=== PATIENT | female | born 1965 | race Caucasian/White ===

== ENCOUNTER 2020-06-16 11:42 | Inpatient (IN) | payer BC, MEDICARE ==
[2020-06-16] MEDS ORDERED: HALOPERIDOL LACTATE INJ 5 MG/1 ML VIAL IV ONE (12:44)
[2020-06-16] MEDS ORDERED: VANCOMYCIN HCL INJ 1000 MG VIAL IV ONE (12:57)
[2020-06-16] MEDS ORDERED: ACETAMINOPHEN 325 MG TABLET PO ONE (12:57)
[2020-06-16] MEDS ORDERED: CEFTRIAXONE 1 GM/D5W RTU 1 GM/50 ML RTUPB IV ONE ×2 (12:57→17:00)
[2020-06-16] MEDS ORDERED: NORMAL SALINE 1000 ML 1,000 ML IV ONE ×2 (12:58→17:32)
[2020-06-16] MEDS ORDERED: LORAZEPAM INJ 2 MG/1 ML VIAL IV ONE ×3 (13:13→17:40)
--- NOTE | 2020-06-16 13:23 | ER Document Report ---
ED General <MALCOLM DESHPANDE - Last Filed: 06/16/20 16:11> <KARRI VITAL P - Last Filed: 06/17/20 00:10> - General Chief Complaint: Fever Stated Complaint: FEVER/WEAKNESS Time Seen by Provider: 06/16/20 12:39 - HPI Notes: Chief complaint: Altered mental status and fever History of present illness: 55-year-old female with past history of brain tumor and CVA transported here via EMS for evaluation of altered mental status and fever. Minimal information was provided to us by the transport crew and patient was severely altered and unable to relate her own history upon arrival here. Patient's subsequently came in and has provided extensive additional history. 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 She subsequently had XRT and chemotherapy. The tumor is apparently felt to be currently in a state of remission. Patient was diagnosed with an acute CVA about 8 years ago and went through extensive physical rehabilitation after the fact. She was left with some left- sided weakness and chronic pain after recovery from stroke. She is on a number of chronic medications at home. There have not been any recent changes in her medications. indicates that patient has some baseline impairment of short-term memory and occasionally has a short attention span but other than that has relatively normal mentation. Patient did not feel well on June 14 and slept a lot during the day. At one point she fell asleep on a stool in her kitchen and fell from a stool striking her head. No reported loss of consciousness. Since then she has had a slow deterioration in mentation. Today they noticed that she had a temperature of 103 degrees at home. She seemed much more confused and was getting mildly agitated. They called EMS and had patient transported here. EMS reports Covid screening was done during transport and was negative. says patient has not been coughing, vomiting or complaining of dysuria. No recent known exposure to ill contacts. She is allergic to sulfa drugs. (MALCOLM DESHPANDE) - Related Data Allergies/Adverse Reactions: Sulfa (Sulfonamide Antibiotics) Allergy (Verified 12/23/11 00:46) Past Medical History - General Information source: Relative, Emergency Med Personnel, [facility] Records Cannot obtain history due to: Uncooperative, Altered mental status - Social History Smoking Status: Never Smoker Frequency of alcohol use: None Drug Abuse: None Lives with: Family Family History: Reviewed & Not Pertinent Patient has homicidal ideation: No - Past Medical History Cardiac Medical History: Reports: Hx Hypertension Neurological Medical History: Reports: Hx Cerebrovascular Accident Endocrine Medical History: Denies: Hx Diabetes Mellitus Type 1, Hx Diabetes Mellitus Type 2 Malignancy Medical History: Reports: Hx Brain Cancer GI Medical History: Reports: None Musculoskeletal Medical History: Reports Other - Chronic musculoskeletal pain Traumatic Medical History: Reports: None <MALCOLM DESHPANDE - Last Filed: 06/16/20 16:11> Other: Craniotomy for brain tumor (MALCOLM DESHPANDE) Review of Systems - Review of Systems -: Yes ROS unobtainable due to patient's medical condition <MALCOLM DESHPANDE - Last Filed: 06/16/20 16:11> Physical Exam <MALCOLM DESHPANDE - Last Filed: 06/16/20 16:11> - Vital signs Vitals: Pulse Ox 96 06/16/20 12:46 - Notes Notes: GENERAL: Middle-age female who is moderately agitated stating that she wants to leave here and she did not want to come in the beginning. She knows she is at a hospital and knows her name but otherwise is very disoriented not able to tell me the month or day and not cooperating to provide any medical history. SKIN: Appears flush with chronic rosacea over the facial area good turgor no rashes. HEAD: Normocephalic atraumatic. EYES: PERRLA. EOMI. Conjunctivae and sclerae clear. EARS: CANALS AND TMS CLEAR. NOSE: CLEAR. MOUTH: Moist mucosa. Good dentition. No stridor or edema. No drooling. NECK: Supple. No masses or thyromegaly. No adenopathy. Carotids 2+ without bruits. No JVD. BACK: Symmetrical without tenderness. CHEST: Respirations unlabored. Breath sounds clear and symmetrical. HEART: Tachycardic regular rhythm. No murmur gallop or rub. ABDOMEN: Soft nontender without masses, organomegaly or rebound. Bowel sounds normally active. No bruits. GENITALIA: Deferred. EXTREMITIES: No edema. No calf tenderness. Cap refill less than 1.5 seconds. Dorsalis pedis and posterior tibial pulses 3+ and symmetrical. NEUROLOGICAL: GCS 14. Uncooperative for a detailed neurologic exam. She is moving all 4 extremities symmetrically. PSYCHIATRIC: Confused and uncooperative (MALCOLM DESHPANDE) Course - Laboratory Results Result Diagrams: 06/16/20 13:50 06/16/20 13:50 <MALCOLM DESHPANDE - Last Filed: 06/16/20 16:11> - Laboratory Results Result Diagrams: 06/16/20 13:50 06/16/20 13:50 Critical Laboratory Results Reviewed: No Critical Results - Radiology Results Critical Radiology Results Reviewed: No Critical Results - EKG Interpretation by Me EKG shows normal: Sinus rhythm Rate: Normal Rhythm: NSR - NSR NL [place] [address] elevation or depression my interpretation. <KARRI VITAL - Last Filed: 06/17/20 00:10> - Re-evaluation Re-evalutation: 06/16/20 16:14 I was concerned about sepsis, meningoencephalitis, metabolic encephalopathy, drug intoxication or head trauma. Patient required sedation to accomplish diagnostic procedures and perform an more appropriate examination. We treated her with parenteral Haldol and Ativan. Cath urine has been obtained and remains pending. She is febrile here. Blood cultures have been drawn. Lactate was requested. CBC shows no elevation of WBC. Her chest x-ray shows no infiltrates. Her Covid nasal swab was negative on the weekend per EMS. She is now sedated from medications were given her earlier. Head CT showed extensive encephalomalacia and postsurgical changes with no acute findings per radiolog ist. Patient was empirically given Rocephin and vancomycin IV on arrival here. Urinalysis remains unreported at this time as does urine tox screen. Alcohol is undetectable. Comprehensive metabolic profile is unremarkable. Serum ammonia is normal. Venous blood gas is normal. Lactate is normal. Further care is turned over to Dr. Vital at 1615 hrs. Anticipate patient will require lumbar puncture and admission. (MALCOLM DESHPANDE) 06/16/20 18:[address] Deshpande. Febrile today wiht le redness left > right. Exam and presentation consistent with cellulitis, delerium and fever. Due to altered state lp done with asistance of staff and pt discussed with Dr. Gomez who has graciously agreed to see and evaluate for admission. (KARRI VITAL) - Vital Signs Vital signs: Temp Pulse Resp BP Pulse Ox 101.1 F H 93 18 115/64 99 06/16/20 21:37 06/16/20 21:37 06/16/20 21:37 06/16/20 21:37 06/16/20 21:37 - Laboratory Results Laboratory Results Interpreted: 06/16/20 06/16/20 06/16/20 13:50 13:50 13:50 RBC 3.67 L Hgb 11.6 L Hct 33.6 L Sodium 134.5 L Glucose 123 H Ammonia < 8.7 L Creatine Kinase 250 H Urine Protein Urine Urobilinogen CSF Glucose CSF Total Protein 06/16/20 06/16/20 15:10 18:10 RBC Hgb Hct Sodium Glucose Ammonia Creatine Kinase Urine Protein 30 H Urine Urobilinogen 4.0 H CSF Glucose 113 H CSF Total Protein 99461 H Procedures - Lumbar Puncture Lumbar puncture Time completed: 18:10 Consent obtained: Yes Lumbar puncture pre-procedure: Sterile PPE donned Patient position: Sitting Needle size: 22 Lumbar puncture location: 3-4 Anesthetic type: 1% Lidocaine - 4 ml mL's of anesthetic: 4 Amount/type of drainage: bloody Number of attempts: 4 Complications: No <KARRI VITAL P - Last Filed: 06/17/20 00:10> Critical Care Note - Critical Care Note Total time excluding time spent on procedures (mins): 30 <KARRI VITAL P - Last Filed: 06/17/20 00:10> Discharge <MALCOLM DESHPANDE E - Last Filed: 06/16/20 16:11> - Discharge Admitting Provider: Jason (Hospitalist) Unit Admitted: IMCU <KARRI VITAL P - Last Filed: 06/17/20 00:10> - Discharge Clinical Impression: Altered mental status Fever Qualifiers: Fever type: unspecified Qualified Code(s): R50.9 - Fever, unspecified Cellulitis Qualifiers: Site of cellulitis: extremity Site of cellulitis of extremity: lower extremity Laterality: unspecified laterality Qualified Code(s): L03.119 - Cellulitis of unspecified part of limb Condition: Serious Disposition: ADMITTED OBSERVATION
--- NOTE | 2020-06-16 13:37 | RADIOLOGY REPORT (SQ) ---
EXAM DESCRIPTION: CHEST SINGLE VIEW IMAGES COMPLETED DATE/TIME: 06/16/2020 12:17 pm REASON FOR STUDY: ams COMPARISON: 12/22/2011 EXAM PARAMETERS: NUMBER OF VIEWS: One view. TECHNIQUE: Single frontal radiographic view of the chest acquired. RADIATION DOSE: NA LIMITATIONS: None. FINDINGS: LUNGS AND PLEURA: No opacities, masses or pneumothorax. No pleural effusion. MEDIASTINUM AND HILAR STRUCTURES: No masses. Contour normal. HEART AND VASCULAR STRUCTURES: Heart normal in size. Normal vasculature. BONES: No acute findings. HARDWARE: None in the chest. OTHER: No other significant finding. IMPRESSION: NO ACUTE RADIOGRAPHIC FINDING IN THE CHEST. TECHNICAL DOCUMENTATION: JOB ID: [id number] 2010 [employer]- All Rights Reserved Reading location - IP/workstation name: [email or web address]
--- NOTE | 2020-06-16 14:01 | EKG REPORT ---
SEVERITY:- BORDERLINE ECG - SINUS RHYTHM PROBABLE LEFT ATRIAL ABNORMALITY : Confirmed by: Dwayne Lechuga MD 16-Jun-2020 14:00:48
[2020-06-16 14:29] LABS: ABSOLUTE BASOPHILS # (AUTO) 0.1 10^3/uL (0.0-0.2); ABSOLUTE LYMPHOCYTES (AUTO) 1.4 10^3/uL (0.5-4.7); ABSOLUTE MONOCYTES (AUTO) 0.7 10^3/uL (0.1-1.4); ABSOLUTE NEUT (AUTO) 6.2 10^3/uL (1.7-8.2); BASOPHILS % (AUTO) 0.9 % (0-2); EOSINOPHILS % (AUTO) 0.1 % (0-6); HEMATOCRIT 33.6 % (36.0-47.0); HEMOGLOBIN 11.6 g/dL (12.0-15.5); LYMPHOCYTES % (AUTO) 16.5 % (13-45); MEAN CORPUSCULAR HEMOGLOBIN 31.6 pg (27.0-33.4); MEAN CORPUSCULAR HGB CONC 34.5 g/dL (32.0-36.0); MEAN CORPUSCULAR VOLUME 92 fl (80-97); MONOCYTES % (AUTO) 8.3 % (3-13); PLATELET COUNT 306 10^3/uL (150-450); RED BLOOD COUNT 3.67 10^6/uL (3.72-5.28); RED CELL DISTRIBUTION WIDTH 12.9 % (11.5-14.0); SEGMENTED NEUTROPHILS % (AUTO) 74.2 % (42-78); TOTAL CELLS COUNTED % (AUTO) 100 %; WHITE BLOOD COUNT 8.3 10^3/uL (4.0-10.5)
[2020-06-16 14:30] LABS: INTERNATIONAL RATION (INR) 0.98; PROTHROMBIN TIME 13.2 SEC (11.4-15.4)
[2020-06-16 14:47] LABS: ALKALINE PHOSPHATASE 120 U/L (38-126); ANION GAP 6 (5-19); ASPARTATE AMINO TRANSFERASE 35 U/L (14-36); BILIRUBIN,DIRECT 0.2 mg/dL (0.0-0.4); BILIRUBIN,TOTAL 0.5 mg/dL (0.2-1.3); BLOOD UREA NITROGEN 13 mg/dL (7-20); CALCIUM 8.9 mg/dL (8.4-10.2); CARBON DIOXIDE 28 mmol/L (22-30); CHLORIDE 101 mmol/L (98-107); CREATINE KINASE 250 U/L (30-135); GLUCOSE 123 mg/dL (75-110); POTASSIUM 4.2 mmol/L (3.6-5.0); TOTAL PROTEIN 7.1 g/dL (6.3-8.2)
[2020-06-16 14:49] LABS: ALCOHOL < 10 mg/dL (NONE DETECTED)
[2020-06-16 15:10] LABS: VENOUS BLOOD BASE EXCESS -0.8 mmol/L; VENOUS BLOOD HCO3 23.8 mmol/L (20-32); VENOUS BLOOD PCO2 39.1 mmHg (35-63); VENOUS BLOOD PH 7.4 (7.30-7.42)
--- NOTE | 2020-06-16 15:39 | RADIOLOGY REPORT (SQ) ---
EXAM DESCRIPTION: CT HEAD WITHOUT IMAGES COMPLETED DATE/TIME: 06/16/2020 2:02 pm REASON FOR STUDY: ams. Prior right brain tumor resection. COMPARISON: 12/22/2011. TECHNIQUE: Axial images acquired through the brain without intravenous contrast. Images reviewed wi th bone, brain and subdural windows. Additional sagittal and coronal reconstructions were generated. Images stored on PACS. All CT scanners at this facility use dose modulation, iterative reconstruction, and/or weight based d osing when appropriate to reduce radiation dose to as low as reasonably achievable (ALARA). [facility]: Dose Right [facility]: CareDose [facility]: Dose Right [facility]: Teradose 4D [facility]: [employer] RADIATION DOSE: CT Rad equipment meets quality standard of care and radiation dose reduction techniq ues were employed. CTDIvol: 50.0 mGy. DLP: 981 mGy-cm. mGy. LIMITATIONS: None. FINDINGS: VENTRICLES: Normal size and contour. CEREBRUM: Postoperative changes in the right posterior temporoparietal lobe are stable from prior exa mination. There is no recurrent mass or surrounding vasogenic edema. Prominence of the right latera l ventricle consistent with ex vacuo phenomenon. No evidence of hydrocephalus. No masses. No hemor rhage. No midline shift. No evidence for acute infarction. Normal huggins/white matter differentiation . No areas of low density in the white matter. CEREBELLUM: No masses. No hemorrhage. No alteration of density. No evidence for acute infarction. EXTRAAXIAL SPACES: No fluid collections. No masses. ORBITS AND GLOBE: No intra- or extraconal masses. Normal contour of globe without masses. CALVARIUM: Prior right craniotomy is intact. No underlying fracture, lytic or blastic bone lesion. PARANASAL SINUSES: No fluid or mucosal thickening. SOFT TISSUES: No mass or hematoma. OTHER: No other significant finding. IMPRESSION: No significant interval change. Postsurgical changes in the right cerebrum are stable. No acute intracranial hemorrhage, mass, or evidence of acute territorial infarct. EVIDENCE OF ACUTE STROKE: NO. COMMENT: Quality ID # [id number]: Final reports with documentation of one or more dose reduction techniques (e.g., Automated exposure control, adjustment of the mA and/or kV according to patient size, use of iterative reconstruction technique) TECHNICAL DOCUMENTATION: JOB ID: [id number] [employer]- All Rights Reserved Reading location - IP/workstation name: [email or web address]
[2020-06-16 16:06] LABS: APPEARANCE,URINE CLEAR; BILIRUBIN,URINE NEGATIVE (NEGATIVE); COLOR,URINE YELLOW; GLUCOSE, URINE NEGATIVE (NEGATIVE); KETONES,URINE NEGATIVE (NEGATIVE); PROTEIN,URINE 30 mg/dL (NEGATIVE); URINE SPECIFIC GRAVITY 1.024
--- NOTE | 2020-06-16 16:18 | RADIOLOGY REPORT (SQ) ---
EXAM DESCRIPTION: CT CERVICAL SPINE WITHOUT IMAGES COMPLETED DATE/TIME: 06/16/2020 3:02 pm REASON FOR STUDY: trauma COMPARISON: None. TECHNIQUE: Axial images acquired through the cervical spine without intravenous contrast. Images re viewed with lung, soft tissue and bone windows. Reconstructed coronal and sagittal MPR images review ed. Images stored on PACS. All CT scanners at this facility use dose modulation, iterative reconstruction, and/or weight based d osing when appropriate to reduce radiation dose to as low as reasonably achievable (ALARA). [facility]: Dose Right [facility]: CareDose [facility]: Dose Right [facility]: Teradose 4D [facility]: [email or web address] RADIATION DOSE: CT Rad equipment meets quality standard of care and radiation dose reduction techniq ues were employed. CTDIvol: 26.3 mGy. DLP: 660 mGy-cm. mGy. LIMITATIONS: Motion artifact limits evaluation of the C4/5 level. FINDINGS: ALIGNMENT: Reversal of the normal lordotic curvature may be positional. MINERALIZATION: Normal. VERTEBRAL BODIES: Evaluation of the C4/5 level is somewhat limited by patient motion artifact. The v ertebral bodies appear to be largely intact. DISCS: Minimal disc disease is seen predominantly at the C5/6 and C6/7 levels. FACETS, LATERAL MASSES, POSTERIOR ELEMENTS: No fractures. No dislocation. No acute findings. HARDWARE: None in the spine. VISUALIZED RIBS: No fractures. LUNG APICES AND SOFT TISSUES: No significant or acute findings. OTHER: No other significant finding. IMPRESSION: Patient motion artifact limits evaluation of the C4/[address] evidence of acute osseous injury. If high clinical suspicion for C4/5 injury, recommend repeat evaluation. TECHNICAL DOCUMENTATION: JOB ID: [id number] Quality ID # [id number]: Final reports with documentation of one or more dose reduction techniques (e.g., Au tomated exposure control, adjustment of the mA and/or kV according to patient size, use of iterative reconstruction technique) 2010 [employer]- All Rights Reserved Reading location - IP/workstation name: [email or web address]
[2020-06-16 16:26] LABS: URINE AMPHETAMINES SCREEN NEGATIVE; URINE BARBITURATES SCREEN NEGATIVE; URINE BENZODIAZEPINES SCREEN NEGATIVE; URINE COCAINE SCREEN NEGATIVE; URINE MARIJUANA (THC) SCREEN NEGATIVE; URINE METHADONE SCREEN NEGATIVE; URINE PHENCYCLIDINE SCREEN NEGATIVE
[2020-06-16] MEDS ORDERED: MEROPENEM 1 GM VIAL IV ONE (17:40)
[2020-06-16] MEDS ORDERED: ACETAMINOPHEN 325 MG SUPP.RECT PR ONE (18:16)
[2020-06-16 19:17] LABS: GLUCOSE,CSF 113 mg/dL (40-70)
[2020-06-16] MEDS ORDERED: MEROPENEM 1 GM VIAL IV PRN (19:50)
[2020-06-16] MEDS ORDERED: MEROPENEM 1 GM in NORMAL SALINE 50 ML IV ONE (20:00)
[2020-06-16 20:12] LABS: PROTEIN,CSF 10737 mg/dL (12-60)
[2020-06-16] MEDS ORDERED: VANCOMYCIN HCL 0 MG in DEXTROSE 5%-WATER 250 ML IV NR (20:30)
[2020-06-16] MEDS ORDERED: PROMETHAZINE HCL INJ 25 MG/1 ML VIAL IV PRN (20:46)
[2020-06-16] MEDS ORDERED: ACETAMINOPHEN 650 MG/65 ML IV PRN (20:46)
[2020-06-16] MEDS ORDERED: ACETAMINOPHEN 1,000 MG/100 ML RTUPB IV ONE (21:00)
[2020-06-16] MEDS ORDERED: LEVETIRACETAM 1000 MG/NACL-ISO 1,000 MG/100 ML RTUPB IV SCH (22:00)
[2020-06-16] MEDS ORDERED: MEROPENEM 1 GM VIAL ONE (22:09)
--- NOTE | 2020-06-16 22:10 | PDOC H&P ---
History of Present Illness Admission Date/PCP: 06/16/20 18:44 KIRBY GORE NP Patient complains of: Altered mental status History of Present Illness: DANIEL GAY is a 55 year old female with a complex history. This includes brain tumor resection. She also had a stroke in 2011. She spent 9 days inpatient at [facility] and then 3 weeks had in rehab. Her states that over the last several days she has been having episodes of deep slee p. She would seem to fall asleep immediately. After sleep she would be incoherent. Yesterday she slept for approximately 5 hours on a raised kitchen island stool. Family was concerned and called EMS. When EMS arrived she did wake up. The patient was still somnolent. She did not transport to the hospital. When her walked her to bed it was almost as if she were in a drunken stupor. This morning she was flailing in bed. She was moaning and crying and complained of headache. Her fever has been elevated at 103 degrees. In the emergency department she is writhing in bed. These are nonpurposeful movements. They appear to worsen with any contact with the patient. Urgency room physicians had to administer Haldol and benzodiazepine therapy for sedation. The patient is unable to provide any history. The patient's did provide a list of medications. The most prominent vital signs a temperature of 103 F over the last several hours. 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 Endocrine Medical History: Denies: Diabetes Mellitus Type 1, Diabetes Mellitus Type 2 Malignancy Medical History: Reports: Brain Cancer GI Medical History: Reports: None Musculoskeltal Medical History: Reports: Other - Chronic musculoskeletal pain Traumatic Medical History: Reports: None Past Surgical History Past Surgical History: Reports: Other - Craniotomy Social History Information Source: Relative - Lives with: Spouse/Significant other Smoking Status: Never Smoker Electronic Cigarette use?: No Frequency of Alcohol Use: None Hx Recreational Drug Use: No Hx Prescription Drug Abuse: No - Advance Directive Resuscitation Status: Full Code Surrogate healthcare decision maker:: Discussed with the patient's . He is the decision maker. Family History Family History: Reviewed & Not Pertinent Parental Family History Reviewed: Yes Children Family History Reviewed: Yes Sibling(s) Family History Reviewed.: Yes Medication/Allergy Allergies/Adverse Reactions: Sulfa (Sulfonamide Antibiotics) Allergy (Verified 12/23/11 00:46) Review of Systems ROS unobtainable: Due to mental status Physical Exam Vital Signs: Temp Pulse Resp BP Pulse Ox 103.3 F H 115/73 89 L 06/16/20 19:01 06/16/20 19:01 06/16/20 19:01 Intake & Output 06/15/20 06/16/20 06/17/20 06:59 06:59 06:59 Intake Total 1300 Balance 1300 General appearance: PRESENT: severe distress, well-developed, other - Patient is writhing around in bed. She does not respond to verbal stimuli. She does not open her eyes. She also exhibits deep snoring Head exam: PRESENT: other - Evidence of craniotomy Ear exam: PRESENT: normal external ear exam. ABSENT: bleeding, drainage Mouth exam: PRESENT: other - Unable to assess Neck exam: PRESENT: other - Unable to assess Respiratory exam: PRESENT: clear to auscultation nida, symmetrical, other - Very difficult to assess due to patient constantly writhing in bed. ABSENT: rales, rhonchi, wheezes Cardiovascular exam: PRESENT: RRR, +S1, +S2. ABSENT: bradycardia, diastolic murmur, irregular rhythm, systolic murmur, tachycardia GI/Abdominal exam: PRESENT: diminished bowel sounds, soft. ABSENT: tenderness Rectal exam: PRESENT: deferred Gentrourinary exam: PRESENT: indwelling catheter Neurological exam: PRESENT: altered - Unresponsive to verbal communication., other - Unable to fully assess. Patient nonverbal. Eyes closed. She was writhing around in bed exhibiting chorea-like movements with dystonia. Movements were random and not purposeful. Psychiatric exam: PRESENT: agitated, unusual affect Skin exam: PRESENT: erythema - Both legs. Very warm to the touch., rash - Almost exhibited a lacy mottled appearance that was quite faint., other - Facial flushing Results Laboratory Results: 06/16/20 13:50 06/16/20 13:50 06/16/20 06/16/20 06/16/20 13:50 13:50 13:50 WBC 8.3 RBC 3.67 L Hgb 11.6 L Hct 33.6 L MCV 92 MCH 31.6 MCHC 34.5 RDW 12.9 Plt Count 306 Seg Neutrophils % 74.2 VBG pH VBG pCO2 VBG HCO3 VBG Base Excess Sodium 134.5 L Potassium 4.2 Chloride 101 Carbon Dioxide 28 Anion Gap 6 BUN 13 Creatinine 0.54 Est GFR ( Amer) > 60 Glucose 123 H Lactic Acid Calcium 8.9 Total Bilirubin 0.5 AST 35 Alkaline Phosphatase 120 Ammonia < 8.7 L Total Protein 7.1 Albumin 4.0 Urine Color Urine Appearance Urine pH Ur Specific [place] Urine Protein Urine Glucose (UA) Urine Ketones Urine Blood Urine RBC (Auto) Fluid Tube Number CSF Volume CSF Appearance CSF Color CSF WBC CSF RBC CSF Color (1) CSF Appearance (1) CSF Color (2) CSF Appearance (2) CSF Color (3) CSF Appearance (3) CSF Color (4) CSF Appearance (4) CSF Polymorphonuclear CSF Glucose CSF Total Protein 06/16/20 06/16/20 06/16/20 13:50 14:42 15:10 WBC RBC Hgb Hct MCV MCH MCHC RDW Plt Count Seg Neutrophils % VBG pH 7.40 VBG pCO2 39.1 VBG HCO3 23.8 VBG Base Excess -0.8 Sodium Potassium Chloride Carbon Dioxide Anion Gap BUN Creatinine Est GFR ( Amer) Glucose Lactic Acid 1.4 Calcium Total Bilirubin AST Alkaline Phosphatase Ammonia Total Protein Albumin Urine Color YELLOW Urine Appearance CLEAR Urine pH 7.0 Ur Specific [place] 1.024 Urine Protein 30 H Urine Glucose (UA) NEGATIVE Urine Ketones NEGATIVE Urine Blood NEGATIVE Urine RBC (Auto) 1 Fluid Tube Number CSF Volume CSF Appearance CSF Color CSF WBC CSF RBC CSF Color (1) CSF Appearance (1) CSF Color (2) CSF Appearance (2) CSF Color (3) CSF Appearance (3) CSF Color (4) CSF Appearance (4) CSF Polymorphonuclear CSF Glucose CSF Total Protein 06/16/20 06/16/20 06/16/20 16:20 18:10 18:10 WBC RBC Hgb Hct MCV MCH MCHC RDW Plt Count Seg Neutrophils % VBG pH VBG pCO2 VBG HCO3 VBG Base Excess Sodium Potassium Chloride Carbon Dioxide Anion Gap BUN Creatinine Est GFR ( Amer) Glucose Lactic Acid 2.0 Calcium Total Bilirubin AST Alkaline Phosphatase Ammonia Total Protein Albumin Urine Color Urine Appearance Urine pH Ur Specific [place] Urine Protein Urine Glucose (UA) Urine Ketones Urine Blood Urine RBC (Auto) Fluid Tube Number Cancelled CSF Volume Cancelled CSF Appearance Cancelled CSF Color Cancelled CSF WBC Cancelled CSF RBC Cancelled CSF Color (1) Cancelled CSF Appearance (1) Cancelled CSF Color (2) Cancelled CSF Appearance (2) Cancelled CSF Color (3) Cancelled CSF Appearance (3) Cancelled CSF Color (4) Cancelled CSF Appearance (4) Cancelled CSF Polymorphonuclear Cancelled CSF Glucose 113 H CSF Total Protein 49945 H 06/16/20 20:11 WBC RBC Hgb Hct MCV MCH MCHC RDW Plt Count Seg Neutrophils % VBG pH VBG pCO2 VBG HCO3 VBG Base Excess Sodium Potassium Chloride Carbon Dioxide Anion Gap BUN Creatinine Est GFR ( Amer) Glucose Lactic Acid 0.9 Calcium Total Bilirubin AST Alkaline Phosphatase Ammonia Total Protein Albumin Urine Color Urine Appearance Urine pH Ur Specific [place] Urine Protein Urine Glucose (UA) Urine Ketones Urine Blood Urine RBC (Auto) Fluid Tube Number CSF Volume CSF Appearance CSF Color CSF WBC CSF RBC CSF Color (1) CSF Appearance (1) CSF Color (2) CSF Appearance (2) CSF Color (3) CSF Appearance (3) CSF Color (4) CSF Appearance (4) CSF Polymorphonuclear CSF Glucose CSF Total Protein 06/16/20 13:50 Creatine Kinase 250 H Impressions: Chest X-Ray 06/16/20 12:55 IMPRESSION: NO ACUTE RADIOGRAPHIC FINDING IN THE CHEST. Head CT 06/16/20 12:59 IMPRESSION: No significant interval change. Postsurgical changes in the right cerebrum are stable. No acute intracranial hemorrhage, mass, or evidence of acute territorial infarct. EVIDENCE OF ACUTE STROKE: NO. Cervical Spine CT 06/16/20 13:15 IMPRESSION: Patient motion artifact limits evaluation of the C4/[address] evidence of acute osseous injury. If high clinical suspicion for C4/5 injury, recommend repeat evaluation. Assessment and Plan - Diagnosis (1) Cellulitis Qualifiers: Site of cellulitis: extremity Site of cellulitis of extremity: lower extremity Laterality: unspecified laterality Qualified Code(s): L03.119 - Cellulitis of unspecified part of limb Is this a current diagnosis for this admission?: Yes (2) Fever Qualifiers: Fever type: unspecified Qualified Code(s): R50.9 - Fever, unspecified Is this a current diagnosis for this admission?: Yes (3) Acute metabolic encephalopathy Is this a current diagnosis for this admission?: Yes (4) Chorea Is this a current diagnosis for this admission?: Yes (5) Essential (primary) hypertension Is this a current diagnosis for this admission?: Yes (6) Snoring Is this a current diagnosis for this admission?: Yes - Plan Summary Summary: Cellulitis-the patient's legs are red and warm. There are no ulcerations. She does not have an elevated white blood cell count. I will cover with antibiotics. Acute encephalopathy-infection is a possibility. Cerebrospinal fluid was obt ained however the specimen was bloody. Cell count was aborted. Extremely high protein levels likely due to bloody tap. Specimen was sent for Gram stain and culture. Will cover infectious etiology. She is on meropenem, vancomycin and start acyclovir. Spinal fluid was sent for Gram stain and culture. Unfortunately due to the bloody tap cell count was canceled. Her CSF protein was greater than 10,000 which is an adverse effect of the blood in her spinal fluid and useless for the purpose of diagnoses. She was on carbamazepine and gabapentin. She did have a craniotomy with tumor removal many years ago. I am going to administer Keppra in the event that this is some atypical seizure activity. She also takes pramipexole. The patient's was unsure of the dose. This could be an adverse effect of the medication or some combination of medications. I am actually going to hold the gabapentin, carbamazepine and Mirapex. She will get IV fluids. If it is related to the medications there should be a washout period where she improves. I am going to call her neurologist in the morning to discuss the case. She does have a slightly distended abdomen. She is on 100 mg of spironolactone as well as furosemide. does not report any history of cirrhosis. He does state that her abdomen has slowly been getting larger over the last 8 to 12 months. Laboratory studies are actually unremarkable. I have ordered more studies for the morning. This is a diagnostic challenge. I am hoping that discussion with her neurologist as well as some of the blood work ordered, fluids being administered and benzodiazepines for sedation if needed will result in some improvement tomorrow. - Time Time Spent with patient: 35 or more minutes Medications reviewed and adjusted accordingly: Yes Anticipated Discharge Disposition: Unknown Anticipated Discharge Timeframe: Unknown - Inpatient Certification Based on my medical assessment, after consideration of the patient's comorbidities, presenting symptoms, or acuity I expect that the services needed warrant INPATIENT care.: Yes I certify that my determination is in accordance with my understanding of Medicare's requirements for reasonable and necessary INPATIENT services [42 CFR 412.3e].: Yes Medical Necessity: Significant Comorbidiites Make Outpatient Treatment Too Risky, Need Close Monitoring Due to Risk of Patient Decompensation, Need For IV Fluids, Need for IV Antibiotics Post Hospital Care: D/C or Transfer Summary
[2020-06-16] MEDS: MEROPENEM 1 GM in NORMAL SALINE 50 ML IV SCH (23:43)
[2020-06-16] MEDS: NORMAL SALINE 1000 ML 1,000 ML IV PRN (23:45)
[2020-06-16] MEDS: LORAZEPAM INJ 2 MG/1 ML VIAL IV PRN (23:49)
[2020-06-17] MEDS: LEVETIRACETAM 1000 MG/NACL-ISO 1,000 MG/100 ML RTUPB IV SCH ×3 (00:42→23:07)
[2020-06-17] MEDS ORDERED: ACYCLOVIR SODIUM INJ/PF 500 MG/10 ML SDV IV ONE (01:27)
[2020-06-17] MEDS: ACYCLOVIR SODIUM 700 MG in NORMAL SALINE 100 ML IV SCH (02:31)
[2020-06-17 05:58] LABS: ABSOLUTE EOSINOPHILS # (AUTO) 0.1 10^3/uL (0.0-0.6); ABSOLUTE LYMPHOCYTES (AUTO) 1.5 10^3/uL (0.5-4.7); ABSOLUTE NEUT (AUTO) 4.2 10^3/uL (1.7-8.2); BASOPHILS % (AUTO) 0.5 % (0-2); EOSINOPHILS % (AUTO) 1.1 % (0-6); HEMATOCRIT 30.8 % (36.0-47.0); HEMOGLOBIN 10.7 g/dL (12.0-15.5); LYMPHOCYTES % (AUTO) 22.7 % (13-45); MEAN CORPUSCULAR HEMOGLOBIN 32.1 pg (27.0-33.4); MEAN CORPUSCULAR HGB CONC 34.7 g/dL (32.0-36.0); MEAN CORPUSCULAR VOLUME 92 fl (80-97); MONOCYTES % (AUTO) 14.2 % (3-13); PLATELET COUNT 228 10^3/uL (150-450); RED BLOOD COUNT 3.33 10^6/uL (3.72-5.28); RED CELL DISTRIBUTION WIDTH 12.5 % (11.5-14.0); SEGMENTED NEUTROPHILS % (AUTO) 61.5 % (42-78); TOTAL CELLS COUNTED % (AUTO) 100 %; WHITE BLOOD COUNT 6.8 10^3/uL (4.0-10.5)
[2020-06-17] MEDS: LORAZEPAM INJ 2 MG/1 ML VIAL IV PRN ×2 (06:15→12:20)
[2020-06-17] MEDS: NORMAL SALINE 1000 ML 1,000 ML IV PRN ×2 (06:24→15:58)
[2020-06-17 06:32] LABS: ALBUMIN 3.5 g/dL (3.5-5.0); ALKALINE PHOSPHATASE 103 U/L (38-126); ANION GAP 6 (5-19); ASPARTATE AMINO TRANSFERASE 28 U/L (14-36); BILIRUBIN,DIRECT 0.2 mg/dL (0.0-0.4); BILIRUBIN,TOTAL 0.6 mg/dL (0.2-1.3); BLOOD UREA NITROGEN 9 mg/dL (7-20); C-REACTIVE PROTEIN 17.8 mg/L (<10.0); CALCIUM 8.5 mg/dL (8.4-10.2); CARBON DIOXIDE 27 mmol/L (22-30); CHLORIDE 105 mmol/L (98-107); CREATINE KINASE 168 U/L (30-135); GLUCOSE 110 mg/dL (75-110); POTASSIUM 3.9 mmol/L (3.6-5.0); TOTAL PROTEIN 6.5 g/dL (6.3-8.2)
[2020-06-17 06:34] LABS: FREE T4 (FREE THYROXINE) 0.71 ng/dL (0.78-2.19)
[2020-06-17] MEDS: MEROPENEM 1 GM in NORMAL SALINE 50 ML IV SCH ×4 (06:38→23:05)
[2020-06-17 06:40] LABS: ERYTHROCYTE SEDIMENTATION RATE 40 mm/hr (0-30)
[2020-06-17 06:47] LABS: THYROID STIMULATING HORMONE 6.17 uIU/mL (0.47-4.68)
[2020-06-17] MEDS ORDERED: PROMETHAZINE HCL INJ 25 MG/1 ML VIAL IV PRN (07:30)
[2020-06-17] MEDS: ENOXAPARIN SODIUM INJ 40 MG/0.4 ML DISP.SYRIN SUBCUT SCH (09:16)
[2020-06-17] MEDS: PANTOPRAZOLE SODIUM 40 MG VIAL IV SCH (09:16)
[2020-06-17] MEDS ORDERED: LISINOPRIL 10 MG TABLET PO SCH (10:00)
[2020-06-17] MEDS ORDERED: ACETAMINOPHEN 650 MG SUPP.RECT PR PRN (13:29)
[2020-06-17] MEDS ORDERED: LORAZEPAM INJ 2 MG/1 ML VIAL ONE ×5 (13:58→20:59)
[2020-06-17] MEDS ORDERED: ACYCLOVIR SODIUM 700 MG in NORMAL SALINE 100 ML IV SCH (14:00)
[2020-06-17] MEDS ORDERED: LORAZEPAM INJ 2 MG/1 ML VIAL IV ONE ×5 (14:00→20:33)
[2020-06-17] MEDS ORDERED: HALOPERIDOL LACTATE INJ 5 MG/1 ML VIAL IV ONE (14:51)
[2020-06-17] MEDS ORDERED: DIPHENHYDRAMINE HCL 50 MG/ML VIAL IV ONE (14:51)
[2020-06-17] MEDS ORDERED: DIPHENHYDRAMINE HCL 50 MG/ML VIAL ONE ×2 (15:01→20:59)
[2020-06-17] MEDS: VANCOMYCIN HCL 1,250 MG in DEXTROSE 5%-WATER 250 ML IV SCH (15:59)
--- NOTE | 2020-06-17 16:07 | RADIOLOGY REPORT (SQ) ---
EXAM DESCRIPTION: PICC INSERTION IMAGES COMPLETED DATE/TIME: 06/17/2020 3:49 pm REASON FOR STUDY: unable to get IV access COMPARISON: None. FLUOROSCOPY TIME: 25 seconds 1 images saved to PACS. TECHNIQUE: Fluoroscopic and ultrasound guided PICC placement. LIMITATIONS: None. PROCEDURE: After written consent and assessment were obtained, the patient was brought into the fluo roscopy room and placed supine on the table. Ultrasound evaluation of potential access sites were per formed. After successfully identifying a patent right upper extremity basilic vein, the right upper a rm was prepped and draped in a sterile fashion along with the ultrasound probe. The entry site was an esthetized with 1% lidocaine. A 21 gauge 7 cm needle was advanced through the skin and into the right basilic vein under live ultrasound guidance. An ultrasound image was saved to PACS confirming acces s site. A .018 guide wire was then inserted through the needle and into the venous system. The needl e was then removed and an 11 blade scalpel was used to make a 1cm skin incision. A 5 fr peel-away sh eath was advanced over the wire and into the venous system. A measurement was then made using the exi sting wire and live fluoroscopic guidance. The wire was then removed and trimmed. The PICC was advanc ed through the peel-away sheath and into the venous system. The peel-away sheath was removed and the catheter was adhered to the patients arm with a stat lock. The catheter was then aspirated and flushe d and a sterile bandage was placed over the access site. A fluoroscopic spot image was saved to PACS confirming the catheter tip within the SVC. IMPRESSION: SUCCESSFUL PLACEMENT OF A 5 FR DUAL LUMEN 36 CM PICC IN THE RIGHT BASILIC VEIN. COMMENT: Patient medication list reviewed: Yes- Quality ID# 130:Eligible professional attests to doc umenting in the medical record they obtained, updated, or reviewed the patient's current medications. . Quality ID 145: Final reports for procedures using fluoroscopy that document radiation exposure chaparro sanya, or exposure time and number of fluorographic images (if radiation exposure indices are not avail able) Quality ID #76: The patient was prepped and draped using maximum sterile barrier technique including cap, mask, sterile gown, sterile gloves, a large sterile sheet, hand hygiene, and 2% Chlorhexidine fo r cutaneous antisepsis. When ultrasound is used, sterile ultrasound techniques are followed requiring sterile gel and sterile probes. TECHNICAL DOCUMENTATION: JOB ID: [id number] 2010 [employer]- All Rights Reserved rev Reading location - IP/workstation name: [id number]
--- NOTE | 2020-06-17 19:56 | PDOC PROGRESS REPORT ---
Subjective Date:: 06/17/20 Subjective:: Remains febrile. Continues to have uncontrollable choreiform movements, no jerking movements whatsoever. Reason For Visit: ALTERED MENTAL STATUS, FEVER, CELLULITIS Physical Exam Vital Signs: Temp Pulse Resp BP Pulse Ox 98.4 F 109 H 24 H 158/71 H 90 L 06/17/20 17:45 06/17/20 16:15 06/17/20 16:15 06/17/20 16:15 06/17/20 16:15 Intake & Output 06/16/20 06/17/20 06/18/20 06:59 06:59 06:59 Intake Total 2300 2550 Output Total 850 1000 Balance 1450 1550 Weight 82.1 kg General appearance: PRESENT: obese, other - continuous choreiform movements Eye exam: PRESENT: PERRLA. ABSENT: scleral icterus Mouth exam: PRESENT: dry mucosa Neck exam: PRESENT: meningismus. ABSENT: JVD, lymphadenopathy Respiratory exam: PRESENT: clear to auscultation nida, symmetrical. ABSENT: crackles, wheezes Cardiovascular exam: PRESENT: RRR GI/Abdominal exam: PRESENT: normal bowel sounds, soft. ABSENT: distended, firm, guarding, rebound, rigid, tenderness Rectal exam: PRESENT: deferred Gentrourinary exam: PRESENT: indwelling catheter Neurological exam: PRESENT: altered, other - continuous choreiform movements in all extremities, awakens to voice but does not follow commands or respond to questions, quickly falls asleep after waking up, snoring throughout my exam Focused psych exam: PRESENT: restlessness Skin exam: ABSENT: jaundice, mottled, petechiae, rash, vesicles Results Laboratory Results: 06/17/20 05:35 06/17/20 05:35 06/16/20 06/16/20 06/17/20 18:10 20:11 05:35 WBC 6.8 RBC 3.33 L Hgb 10.7 L Hct 30.8 L MCV 92 MCH 32.1 MCHC 34.7 RDW 12.5 Plt Count 228 Seg Neutrophils % 61.5 Sodium Potassium Chloride Carbon Dioxide Anion Gap BUN Creatinine Est GFR ( Amer) Glucose Lactic Acid 0.9 Calcium Magnesium Total Bilirubin AST Alkaline Phosphatase C-Reactive Protein Total Protein Albumin TSH Free T4 CSF Glucose 113 H CSF Total Protein 68901 H 06/17/20 06/17/20 05:35 05:35 WBC RBC Hgb Hct MCV MCH MCHC RDW Plt Count Seg Neutrophils % Sodium 137.6 Potassium 3.9 Chloride 105 Carbon Dioxide 27 Anion Gap 6 BUN 9 Creatinine 0.49 L Est GFR ( Amer) > 60 Glucose 110 Lactic Acid Calcium 8.5 Magnesium 2.0 Total Bilirubin 0.6 AST 28 Alkaline Phosphatase 103 C-Reactive Protein 17.8 H Total Protein 6.5 Albumin 3.5 TSH 6.17 H Free T4 0.71 L CSF Glucose CSF Total Protein 06/16/20 06/17/20 13:50 05:35 Creatine Kinase 250 H 168 H Impressions: Chest X-Ray 06/16/20 12:55 IMPRESSION: NO ACUTE RADIOGRAPHIC FINDING IN THE CHEST. Head CT 06/16/20 12:59 IMPRESSION: No significant interval change. Postsurgical changes in the right cerebrum are stable. No acute intracranial hemorrhage, mass, or evidence of a cute territorial infarct. EVIDENCE OF ACUTE STROKE: NO. Cervical Spine CT 06/16/20 13:15 IMPRESSION: Patient motion artifact limits evaluation of the C4/[address] evidence of acute osseous injury. If high clinical suspicion for C4/5 injury, recommend repeat evaluation. PICC Line Insertion 06/17/20 00:00 IMPRESSION: SUCCESSFUL PLACEMENT OF A 5 FR DUAL LUMEN 36 CM PICC IN THE RIGHT BASILIC VEIN. Assessment and Plan - Plan Summary Summary: DANIEL GAY is a 55 year old female with PMH of brain tumor s/p resection and CVA in 2011 who presented on 06/16/2020 due to AMS and abnormal movements of her body. Her states that over the last several days she has been having episodes of deep sleep and hyper-somnolence. Her daughter tells me that patient has been complaining of a severe headache and neck stiffness since 06/13. She had fever to 103 degrees F. In the ED, she was found to be exhibiting choreiform movements continuously. LP was performed, unfortunately due to inability to sedate her, the tap was bloody and no cell count could be performed; cultures are pending. She was started on presumed meningitis treatment with acyclovir, m eropenem and vancomycin. Differential diagnoses include bacterial vs aseptic meningitis vs acute CVA vs medication effect vs less likely seizure activity. Cerebrospinal fluid was obtained however the specimen was bloody. Cell count was aborted. Extremely high protein levels likely due to bloody tap. Specimen was sent for Gram stain and culture. Will cover broadly for infectious etiologies. She is on meropenem, vancomycin and acyclovir. Spinal fluid was sent for culture. She was on carbamazepine and gabapentin prior to this hospitalization, and these are being held. She did have a craniotomy with tumor removal many years ago, although her last screening MRI was just 2 months ago and showed no evidence of recurrence. I am going to administer Keppra in the event that this is some atypical seizure activity (unlikely as it is not responsive to high doses of Ativan). She also takes pramipexole at home which is currently held. This may be an adverse effect of the medication or some combination of medications. I am actually going to hold the gabapentin, carbamazepine and Mirapex. She will get IV fluids. If it is related to the medications there should be a washout period where she i mproves. I called [facility] today, where her neurologist is - unfortunately I was unable to reach her own neurologist, but I did speak to Dr. Galloway (neuro admissions evaluator) who recommended to pursue a MRI brain. We have had to given excessively large doses of Ativan to reduce movements, and it has been difficult to obtain MRI as we can not do sedation protocol MRI here at [facility]. I discussed risks/benefits of high dose BZDs with patient's /daughter today and we have decided to repeat a higher dose of Ativan 8 mg IV x1 and attempt MRI brain again this evening. She will be placed on a non-rebreather due to risk of respiratory depression; again this was discussed at length with her family and nursing staff. - consider repeat LP tomorrow if MRI is not diagnostic and she is not improving - ESR and CRP slightly elevated, will trend - labs are otherwise unremarkable - NPO due to mental status, continue maintenance IVF - Oakes catheter for strict I/O - aspiration precautions - seizure precautions - fall precautions - Time Time Spent with patient: 35 or more minutes Anticipated Discharge Disposition: Home, Self Care Anticipated Discharge Timeframe: within 72 hours
[2020-06-17] MEDS ORDERED: NORMAL SALINE 1000 ML 1,000 ML IV PRN (19:57)
[2020-06-17] MEDS ORDERED: MEROPENEM 1 GM VIAL IV SCH (20:00)
[2020-06-17] MEDS ORDERED: CEFTRIAXONE 2 GM/D5W RTU 2 GM/50 ML RTUPB IV SCH ×2 (20:00)
[2020-06-17] MEDS ORDERED: AMPICILLIN SOD INJ 2 GM VIAL IV SCH (20:00)
[2020-06-17] MEDS: FLUMAZENIL INJ 0.5 MG/5 ML VIAL ONE (21:20)
[2020-06-17] MEDS ORDERED: LIDOCAINE 1% INJ-PF (10 MG/ML) 30 ML SDV ONE (22:00)
[2020-06-17 22:09] LABS: INTERNATIONAL RATION (INR) 1.01; PROTHROMBIN TIME 13.5 SEC (11.4-15.4)
[2020-06-17 22:10] LABS: PARTIAL THROMBOPLASTIN TIME 34.9 SEC (23.5-35.8)
[2020-06-17] MEDS: NORMAL SALINE 10 ML SDV (SCHEDULED) IV SCH (23:13)
[2020-06-17 23:18] LABS: GLUCOSE,CSF 44 mg/dL (40-70); PROTEIN,CSF 142 mg/dL (12-60)
[2020-06-17 23:20] LABS: ARTERIAL BLOOD BASE EXCESS -1.5 mmol/L; ARTERIAL BLOOD H2CO3 1.44 mmol/L (1.05-1.35); ARTERIAL BLOOD HCO3 24.6 mmol/L (20-24); ARTERIAL BLOOD O2 SATURATION 98.6 % (94-98); ARTERIAL BLOOD PH 7.33 (7.35-7.45); ARTERIAL BLOOD PO2 139.1 mmHg (80-100); ARTERIAL BLOOD TOTAL CO2 26.1 mmol/L (21-25)
[2020-06-17 23:21] LABS: CSF TUBE NUMBER 3
[2020-06-17 23:22] LABS: APPEARANCE TUBE 1 SLIGHTLY HAZY; COLOR TUBE 1 PINK; COLOR TUBE 2 COLORLESS; COLOR TUBE 3 COLORLESS; COLOR TUBE 4 COLORLESS
[2020-06-17 23:23] LABS: APPEARANCE TUBE 2 CLEAR; APPEARANCE TUBE 3 CLEAR; APPEARANCE TUBE 4 CLEAR; CSF TOTAL VOLUME 19.5 CC; VOLUME TUBE 1 5.5 CC
[2020-06-17 23:24] LABS: RED BLOOD CELL,CSF 14 /uL (0-10); WHITE BLOOD CELL,CSF 105 /uL (0-5)
[2020-06-17 23:29] LABS: ARTERIAL BLOOD FIO2 100%
[2020-06-17 23:30] LABS: MONONUCLEAR CELLS CSF 98 %; POLYMORPHONUCLEAR CELLS CSF 2 %
[2020-06-17] MEDS: NORMAL SALINE IV SCH (23:40)
[2020-06-17] MEDS: ACYCLOVIR SODIUM IV SCH (23:40)
[2020-06-17] MEDS ORDERED: ZIPRASIDONE MESYLATE INJ/PF 20 MG SDV IM ONE (23:59)
[2020-06-18] MEDS ORDERED: IPRATROPIUM/ALBUTEROL 0.5-2.5 MG/3 ML AMPUL NEB PRN (00:22)
[2020-06-18] MEDS ORDERED: IPRATROPIUM/ALBUTEROL 0.5-2.5 MG/3 ML AMPUL NEB ONE (00:30)
[2020-06-18] MEDS: DEXAMETHASONE SOD PHOS INJ 10 MG/1 ML VIAL IV SCH ×5 (00:33→23:26)
[2020-06-18] MEDS: VANCOMYCIN HCL 1,250 MG in DEXTROSE 5%-WATER 250 ML IV SCH ×4 (00:33→17:49)
[2020-06-18] MEDS: ACYCLOVIR SODIUM 700 MG in NORMAL SALINE 100 ML IV SCH (00:42)
[2020-06-18] MEDS ORDERED: LORAZEPAM INJ 2 MG/1 ML VIAL IV ONE (01:00)
[2020-06-18] MEDS ORDERED: ZIPRASIDONE MESYLATE INJ/PF 20 MG SDV IM ONE (01:00)
[2020-06-18] MEDS ORDERED: FLUMAZENIL INJ 0.5 MG/5 ML VIAL IV ONE (01:00)
[2020-06-18] MEDS ORDERED: DIPHENHYDRAMINE HCL 50 MG/ML VIAL IV ONE (01:00)
[2020-06-18] MEDS: DEXTROSE 5%-1/2 NORMAL SALINE 1,000 ML IV PRN (01:10)
[2020-06-18] MEDS: FLUMAZENIL INJ 0.5 MG/5 ML VIAL ONE (01:22)
[2020-06-18] MEDS: NORMAL SALINE 10 ML SDV (AFTER EACH USE) IV PRN ×3 (02:35→06:44)
[2020-06-18] MEDS: MEROPENEM 1 GM in NORMAL SALINE 50 ML IV SCH (05:48)
[2020-06-18 06:14] LABS: ABSOLUTE MONOCYTES (AUTO) 0.4 10^3/uL (0.1-1.4); ABSOLUTE NEUT (AUTO) 8.1 10^3/uL (1.7-8.2); BASOPHILS % (AUTO) 0.3 % (0-2); EOSINOPHILS % (AUTO) 0.2 % (0-6); HEMATOCRIT 30.9 % (36.0-47.0); HEMOGLOBIN 10.9 g/dL (12.0-15.5); LYMPHOCYTES % (AUTO) 10.2 % (13-45); MEAN CORPUSCULAR HEMOGLOBIN 32.1 pg (27.0-33.4); MEAN CORPUSCULAR HGB CONC 35.3 g/dL (32.0-36.0); MEAN CORPUSCULAR VOLUME 91 fl (80-97); MONOCYTES % (AUTO) 4.1 % (3-13); PLATELET COUNT 244 10^3/uL (150-450); RED CELL DISTRIBUTION WIDTH 12.6 % (11.5-14.0); SEGMENTED NEUTROPHILS % (AUTO) 85.2 % (42-78); TOTAL CELLS COUNTED % (AUTO) 100 %; WHITE BLOOD COUNT 9.5 10^3/uL (4.0-10.5)
[2020-06-18] MEDS: ACYCLOVIR SODIUM IV SCH ×3 (06:30→21:28)
[2020-06-18] MEDS: NORMAL SALINE IV SCH ×3 (06:30→21:28)
[2020-06-18 06:34] LABS: ALBUMIN 3.6 g/dL (3.5-5.0); ALKALINE PHOSPHATASE 98 U/L (38-126); ANION GAP 6 (5-19); ASPARTATE AMINO TRANSFERASE 29 U/L (14-36); BILIRUBIN,DIRECT 0.3 mg/dL (0.0-0.4); BILIRUBIN,TOTAL 0.7 mg/dL (0.2-1.3); BLOOD UREA NITROGEN 5 mg/dL (7-20); C-REACTIVE PROTEIN 70.3 mg/L (<10.0); CALCIUM 8.8 mg/dL (8.4-10.2); CARBON DIOXIDE 28 mmol/L (22-30); CHLORIDE 103 mmol/L (98-107); GLUCOSE 159 mg/dL (75-110); POTASSIUM 4.1 mmol/L (3.6-5.0); TOTAL PROTEIN 6.7 g/dL (6.3-8.2)
[2020-06-18 07:05] LABS: ERYTHROCYTE SEDIMENTATION RATE 56 mm/hr (0-30)
[2020-06-18] MEDS ORDERED: INFLUENZA QUAD (6MOS+) 2020-21 VAC 0.5 ML SYR IM ONE (08:00)
[2020-06-18] MEDS: PANTOPRAZOLE SODIUM 40 MG VIAL IV SCH (09:17)
[2020-06-18] MEDS: ENOXAPARIN SODIUM INJ 40 MG/0.4 ML DISP.SYRIN SUBCUT SCH (09:17)
[2020-06-18] MEDS: LEVETIRACETAM 1000 MG/NACL-ISO 1,000 MG/100 ML RTUPB IV SCH ×2 (09:17→21:16)
[2020-06-18] MEDS: NORMAL SALINE 10 ML SDV (SCHEDULED) IV SCH ×2 (09:18→21:27)
[2020-06-18] MEDS ORDERED: AMPICILLIN SOD INJ 2 GM VIAL IV SCH (10:00)
[2020-06-18] MEDS ORDERED: CEFEPIME HCL 2 GM in DEXTROSE 5%-WATER 50 ML IV SCH (11:00)
[2020-06-18] MEDS: CEFEPIME HCL 2 GM in DEXTROSE 5%-WATER 50 ML IV SCH ×2 (11:24→17:49)
[2020-06-18] MEDS: AMPICILLIN SODIUM 2 GM in NORMAL SALINE 100 ML IV SCH ×4 (12:14→23:26)
[2020-06-18] MEDS ORDERED: CEFEPIME 2 GM/D5W RTU 2 GM/50 ML RTUPB IV SCH (14:00)
--- NOTE | 2020-06-18 16:28 | Progress Note ---
Provider Note Provider Note: [facility] ID Telephone Advice Consultation Chart reviewed, patient not seen. This is a 55-year-old woman with history of brain tumor s/p resection long time ago with surveillance brain MRI every year, most recent 2 months ago without evidence of recurrent disease. She had a stroke in 201 with residual hemiparesis for which she required rehab. On 06/14 per notes she started presenting changes in her mental status. Her noticed that she was falling asleep for hours and then wake up confused. This kept happening and he called EMS, patient was brought to the ED, she was found febrile. LP was hemorrhagic, therefore discarded, a repeat LP showed WBC 105 with 98% Mononuclear, Protein 142, RBC 14, glucose 44. CT scan did not show any vasogenic edema or new findings, only post-surgical changes. She was started on vancomycin, meropenem and acyclovir. Fever curve seems to be improving but patient is presenting chorea in her extremities. Apparently no traveling history, sick contacts or animal exposure. ID consulted for recommendations. Allergies: Sulfa (Sulfonamide Antibiotics) Allergy (Verified 12/23/11 00:46) Medications: Acetaminophen [Tylenol 325 mg Tablet] 650 mg PO DAILY 06/17/20 Aspirin [Aspirin 325 mg Tablet] 325 mg PO NOW 06/17/20 Carbamazepine [Tegretol Xr 200 mg Tab.sr] 400 mg PO BID 06/17/20 Furosemide [Lasix 40 mg Tablet] 40 mg PO QAM 06/17/20 Gabapentin [Neurontin] 1,200 mg PO TID 06/17/20 Lisinopril 20 mg PO DAILY 06/17/20 Montelukast Sodium [Singulair 10 mg Tablet] 10 mg PO DAILY 06/17/20 Pramipexole Di-HCl [Mirapex 0.5 Mg Tablet] 0.5 mg PO QHS 06/17/20 Spironolactone [Aldactone 100 mg Tablet] 1 tab PO DAILY 06/17/20 Vital Signs: Temp Pulse Resp BP Pulse Ox 100.3 F 72 28 H 113/63 99 06/18/20 08:28 06/18/20 14:00 06/18/20 05:45 06/18/20 08:00 06/18/20 05:45 Intake & Output 06/17/20 06/18/20 06/19/20 06:59 06:59 06:59 Intake Total 2305 2727 450 Output Total 902 7694 Balance 1450 1398 450 Weight 82.1 kg 66.5 kg Weight/Height Weight 66.5 kg Height 5 ft 5 in Laboratories: 06/18/20 05:42 06/18/20 05:42 MCV 91 fl (80-97) 06/18/20 05:42 MCH 32.1 pg (27.0-33.4) 06/18/20 05:42 MCHC 35.3 g/dL (32.0-36.0) 06/18/20 05:42 RDW 12.6 % (11.5-14.0) 06/18/20 05:42 Seg Neutrophils % 85.2 % (42-78) H 06/18/20 05:42 Carbonic Acid 1.44 mmol/L (1.05-1.35) H 06/17/20 22:52 HCO3/H2CO3 Ratio 17:1 06/17/20 22:52 ABG pH 7.33 (7.35-7.45) L 06/17/20 22:52 ABG pCO2 48.0 mmHg (35-45) H 06/17/20 22:52 ABG pO2 139.1 mmHg (80-100) H 06/17/20 22:52 ABG HCO3 24.6 mmol/L (20-24) H 06/17/20 22:52 ABG O2 Saturation 98.6 % (94-98) H 06/17/20 22:52 ABG Base Excess -1.5 mmol/L 06/17/20 22:52 VBG pH 7.40 (7.30-7.42) 06/16/20 14:42 VBG pCO2 39.1 mmHg (35-63) 06/16/20 14:42 VBG HCO3 23.8 mmol/L (20-32) 06/16/20 14:42 VBG Base Excess -0.8 mmol/L 06/16/20 14:42 FiO2 100% 06/17/20 22:52 Chloride 103 mmol/L (98-107) 06/18/20 05:42 Carbon Dioxide 28 mmol/L (22-30) 06/18/20 05:42 Anion Gap 6 (5-19) 06/18/20 05:42 Est GFR ( Amer) > 60 (>60) 06/18/20 05:42 Glucose 159 mg/dL (75-110) H 06/18/20 05:42 Lactic Acid 0.9 mmol/L (0.7-2.1) 06/16/20 20:11 Calcium 8.8 mg/dL (8.4-10.2) 06/18/20 05:42 Magnesium 2.1 mg/dL (1.6-2.3) 06/18/20 05:42 Total Bilirubin 0.7 mg/dL (0.2-1.3) 06/18/20 05:42 AST 29 U/L (14-36) 06/18/20 05:42 Alkaline Phosphatase 98 U/L (38-126) 06/18/20 05:42 Ammonia < 8.7 umol/L (9-33) L 06/16/20 13:50 C-Reactive Protein 70.3 mg/L (<10.0) H 06/18/20 05:42 Total Protein 6.7 g/dL (6.3-8.2) 06/18/20 05:42 Albumin 3.6 g/dL (3.5-5.0) 06/18/20 05:42 TSH 6.17 uIU/mL (0.47-4.68) H 06/17/20 05:35 Free T4 0.71 ng/dL (0.78-2.19) L 06/17/20 05:35 Urine Color YELLOW 06/16/20 15:10 Urine Appearance CLEAR 06/16/20 15:10 Urine pH 7.0 (5.0-9.0) 06/16/20 15:10 Ur Specific [place] 1.024 06/16/20 15:10 Urine Protein 30 mg/dL (NEGATIVE) H 06/16/20 15:10 Urine Glucose (UA) NEGATIVE mg/dL (NEGATIVE) 06/16/20 15:10 Urine Ketones NEGATIVE mg/dL (NEGATIVE) 06/16/20 15:10 Urine Blood NEGATIVE (NEGATIVE) 06/16/20 15:10 Urine RBC (Auto) 1 /HPF 06/16/20 15:10 Fluid Tube Number 3 06/17/20 21:15 CSF Volume 19.5 CC 06/17/20 21:15 CSF Appearance Cancelled 06/16/20 18:10 CSF Color Cancelled 06/16/20 18:10 CSF WBC 105 /uL (0-5) H 06/17/20 21:15 CSF RBC 14 /uL (0-10) 06/17/20 21:15 CSF Color (1) PINK 06/17/20 21:15 CSF Appearance (1) SLIGHTLY HAZY 06/17/20 21:15 CSF Color (2) COLORLESS 06/17/20 21:15 CSF Appearance (2) CLEAR 06/17/20 21:15 CSF Color (3) COLORLESS 06/17/20 21:15 CSF Appearance (3) CLEAR 06/17/20 21:15 CSF Color (4) COLORLESS 06/17/20 21:15 CSF Appearance (4) CLEAR 06/17/20 21:15 CSF Polymorphonuclear 2 % 06/17/20 21:15 CSF Glucose 44 mg/dL (40-70) 06/17/20 21:15 CSF Total Protein 142 mg/dL (12-60) H 06/17/20 21:15 06/16/20 06/17/20 06/17/20 13:50 05:35 21:43 Creatine Kinase 250 H 168 H 320 H Microbiology: Blood cultures: 06/16 Staphylococcus spp 1/2 sets 06/17 NGTD CSF culture: 06/16 NGTD 06/17 In process Radiology: Chest X-Ray 06/16/20 12:55 IMPRESSION: NO ACUTE RADIOGRAPHIC FINDING IN THE CHEST. Head CT 06/16/20 12:59 IMPRESSION: No significant interval change. Postsurgical changes in the right cerebrum are stable. No acute intracranial hemorrhage, mass, or evidence of acute territorial infarct. EVIDENCE OF ACUTE STROKE: NO. Cervical Spine CT 06/16/20 13:15 IMPRESSION: Patient motion artifact limits evaluation of the C4/[address] evidence of acute osseous injury. If high clinical suspicion for C4/5 injury, recommend repeat evaluation. PICC Line Insertion 06/17/20 00:00 IMPRESSION: SUCCESSFUL PLACEMENT OF A 5 FR DUAL LUMEN 36 CM PICC IN THE RIGHT BASILIC VEIN. Assessment and Recommendations: Patient evaluated due to probable encephalitis. She started with headache, then altered mental status and now choreiform movements. She is febrile. CSF analysis showing mononuclear predominance and elevated protein. Differential diagnosis in terms of etiology would likely be Listeria monocytogenes which can present with similar symptoms, it is unknown if she had any GI symptoms prior to this presentation but this bacteria can be acquired through contaminated food. Treatment is ampicillin 2g IV every 4 hr, will recommend to restart it. Other possible causes of encephalitis are usually viral, compatible with CSF findings. HSV and VZV are the most common, continue acyclovir 10mg/kg IV every 8 hr, HSV 1 and 2 PCR from CSF, VZV PCR from CSF also IgG from CSF and serum as well. Other viral infections are usually self limited, these include WNV, Enterovirus, EBV. No treatment for these, can order CSF PCR. Cryptococcus neoformans is another possibility although opening pressure was normal. Can order Anna ink or Cryp tococcus antigen from blood and csf. Rickettsial infection would be rare at this time of the year unless there is a dog tick exposure that could've transmitted Ehrlichiosis or any other tickborne illness. If she had exposure, consider to add doxycycline 100 mg iv bid. MRI may be helpful at this point to look for temporal enhancement or vasculitis. Duration of therapy for encephalitis either HSV or Listeria would be a minimum of 3 weeks. If there is clinical deterioration, consider to transfer patient to a tertiary center with inhouse ID and neurology. Theresa Obrien MD [facility] [phone]
[2020-06-18] MEDS ORDERED: DOXYCYCLINE HYCLATE INJ 100 MG VIAL IV SCH (19:15)
--- NOTE | 2020-06-18 19:20 | PDOC PROGRESS REPORT ---
Subjective Date:: 06/18/20 Subjective:: She has been afebrile now for over 24 hours. She is exhibiting less abnormal movements and appears much calmer today. She moans in response to voice, eyes flutter but do not open volitionally and she withdraws limbs from pain. Reason For Visit: ALTERED MENTAL STATUS, FEVER, CELLULITIS Physical Exam Vital Signs: Temp Pulse Resp BP Pulse Ox 97.8 F 88 28 H 130/82 H 99 06/18/20 13:17 06/18/20 16:30 06/18/20 05:45 06/18/20 16:30 06/18/20 05:45 Intake & Output 06/17/20 06/18/20 06/19/20 06:59 06:59 06:59 Intake Total 2300 3773 550 Output Total 850 2375 Balance 1450 1398 550 Weight 82.1 kg 66.5 kg General appearance: PRESENT: no acute distress Mouth exam: PRESENT: moist Throat exam: ABSENT: post pharyngeal erythema Neck exam: ABSENT: JVD Respiratory exam: PRESENT: clear to auscultation nida Cardiovascular exam: PRESENT: RRR GI/Abdominal exam: PRESENT: normal bowel sounds, soft. ABSENT: tenderness Gentrourinary exam: PRESENT: indwelling catheter Extremities exam: PRESENT: pedal edema Neurological exam: PRESENT: altered Skin exam: ABSENT: jaundice, rash Results Laboratory Results: 06/18/20 05:42 06/18/20 05:42 06/17/20 06/17/20 06/17/20 21:15 21:15 22:52 WBC RBC Hgb Hct MCV MCH MCHC RDW Plt Count Seg Neutrophils % Carbonic Acid 1.44 H HCO3/H2CO3 Ratio 17:1 ABG pH 7.33 L ABG pCO2 48.0 H ABG pO2 139.1 H ABG HCO3 24.6 H ABG O2 Saturation 98.6 H ABG Base Excess -1.5 FiO2 100% Sodium Potassium Chloride Carbon Dioxide Anion Gap BUN Creatinine Est GFR ( Amer) Glucose Calcium Magnesium Total Bilirubin AST Alkaline Phosphatase C-Reactive Protein Total Protein Albumin Fluid Tube Number 3 CSF Volume 19.5 CSF WBC 105 H CSF RBC 14 CSF Color (1) PINK CSF Appearance (1) SLIGHTLY HAZY CSF Color (2) COLORLESS CSF Appearance (2) CLEAR CSF Color (3) COLORLESS CSF Appearance (3) CLEAR CSF Color (4) COLORLESS CSF Appearance (4) CLEAR CSF Polymorphonuclear 2 CSF Glucose 44 CSF Total Protein 142 H 06/18/20 06/18/20 05:42 05:42 WBC 9.5 RBC 3.40 L Hgb 10.9 L Hct 30.9 L MCV 91 MCH 32.1 MCHC 35.3 RDW 12.6 Plt Count 244 Seg Neutrophils % 85.2 H Carbonic Acid HCO3/H2CO3 Ratio ABG pH ABG pCO2 ABG pO2 ABG HCO3 ABG O2 Saturation ABG Base Excess FiO2 Sodium 136.6 L Potassium 4.1 Chloride 103 Carbon Dioxide 28 Anion Gap 6 BUN 5 L Creatinine 0.43 L Est GFR ( Amer) > 60 Glucose 159 H Calcium 8.8 Magnesium 2.1 Total Bilirubin 0.7 AST 29 Alkaline Phosphatase 98 C-Reactive Protein 70.3 H Total Protein 6.7 Albumin 3.6 Fluid Tube Number CSF Volume CSF WBC CSF RBC CSF Color (1) CSF Appearance (1) CSF Color (2) CSF Appearance (2) CSF Color (3) CSF Appearance (3) CSF Color (4) CSF Appearance (4) CSF Polymorphonuclear CSF Glucose CSF Total Protein 06/16/20 13:50 Blood Blood Culture (PCR) - Final Staphylococcus Species 06/16/20 06/17/20 06/17/20 13:50 05:35 21:43 Creatine Kinase 250 H 168 H 320 H Impressions: Chest X-Ray 06/16/20 12:55 IMPRESSION: NO ACUTE RADIOGRAPHIC FINDING IN THE CHEST. Head CT 06/16/20 12:59 IMPRESSION: No significant interval change. Postsurgical changes in the right cerebrum are stable. No acute intracranial hemorrhage, mass, or evidence of acute territorial infarct. EVIDENCE OF ACUTE STROKE: NO. Cervical Spine CT 06/16/20 13:15 IMPRESSION: Patient motion artifact limits evaluation of the C4/[address] evidence of acute osseous injury. If high clinical suspicion for C4/5 injury, recommend repeat evaluation. PICC Line Insertion 06/17/20 00:00 IMPRESSION: SUCCESSFUL PLACEMENT OF A 5 FR DUAL LUMEN 36 CM PICC IN THE RIGHT BASILIC VEIN. 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 Her states that over the last several days she has been having episodes of deep sleep and hyper-somnolence. Her daughter tells me that patient has been complaining of a severe headache and neck stiffness since 06/13. She had fever to 103 degrees F at home. Unknown if she had any other symptoms while at home. In the ED, she was found to be exhibiting choreiform movements continuously. LP was performed, unfortunately due to inability to sedate her, the tap was bloody and no cell count could be performed. Extremely high protein levels in this sample were likely due to bloody tap. She was started on presumed meningitis treatment with acyclovir, meropenem and vancomycin. I spoke with [facility] on 06/17, where her neurologist is - unfortunately I was unable to reach her own neurologist, but I did speak to Dr. Galloway (neuro in home sales consultant) who recommended to pursue a MRI brain. We had to given excessively large doses of Ativan to reduce choreiform movements, and it has been difficult to obtain MRI thus far as we can not do sedation protocol MRI here at [facility]. She is much calmer today, so we will attempt MRI brain again. LP was repeated on 06/17 evening. Opening pressure was 20 (normal) and cell count was notable for mononuclear predominance and elevated protein. ID was consulted on 06/18. They felt that differential diagnoses included causes of encephalitis, including: Listeria monocytogenes vs viral (HSV, VZV, WNV, Enterovirus, EBV) vs Rickettsial infection (would be rare at this time of the year but the patient does have several dogs and is at risk for potential dog tick exposure). She has been continued on the following treatment with some improvement noted in her fever curve and mental status over the last 48 hours: - cefepime and vancomycin - ampicillin 2g IV Q4H (D1: 06/18/2020) - acyclovir 10mg/kg IV Q8H (D1: 06/17/2020) - doxycycline 100 mg IV Q12H (D1: 06/18/2020) Other ID recommendations: - MRI may be helpful to look for temporal enhancement or vasculitis. - Duration of therapy for encephalitis (HSV or Listeria) would be a minimum of 3 weeks. - If there is clinical deterioration, transfer patient to a tertiary center with in-house ID and neurology. She had been on carbamazepine and gabapentin for many months prior to this hospitalization, and these are currently held. She did have a craniotomy with tumor removal many years ago, although her last screening MRI was just 2 months ago and showed no evidence of recurrence. I am going to continue Keppra in the event that this is some atypical seizure activity. She also takes pramipexole at home which is also currently held. F/E/N - NPO due to mental status, continue maintenance IVF - will need to consider NGT for tube feeds tomorrow if she is not waking up enough to eat - Oakes catheter for strict I/O - aspiration precautions - seizure precautions - fall precautions DVT ppx: Lovenox - Time Time Spent with patient: 35 or more minutes Anticipated Discharge Disposition: Long-Term Facility Anticipated Discharge Timeframe: within 72 hours
[2020-06-18] MEDS: DOXYCYCLINE HYCLATE 100 MG in DEXTROSE 5%-WATER 250 ML IV SCH (21:31)
[2020-06-19] MEDS: CEFEPIME HCL 2 GM in DEXTROSE 5%-WATER 50 ML IV SCH ×3 (01:46→18:18)
[2020-06-19] MEDS: DEXTROSE 5%-1/2 NORMAL SALINE 1,000 ML IV PRN (01:46)
[2020-06-19] MEDS: VANCOMYCIN HCL 1,250 MG in DEXTROSE 5%-WATER 250 ML IV SCH ×3 (02:00→18:18)
[2020-06-19] MEDS: AMPICILLIN SODIUM 2 GM in NORMAL SALINE 100 ML IV SCH ×5 (04:54→20:33)
[2020-06-19] MEDS: DEXAMETHASONE SOD PHOS INJ 10 MG/1 ML VIAL IV SCH ×3 (05:52→18:21)
[2020-06-19] MEDS: ACYCLOVIR SODIUM IV SCH ×3 (05:53→22:02)
[2020-06-19] MEDS: NORMAL SALINE IV SCH ×3 (05:53→22:02)
[2020-06-19] MEDS ORDERED: DEXTROSE 50%-WATER 25 GM/50 ML DISP.SYRIN IV PRN ×2 (08:35)
[2020-06-19] MEDS ORDERED: DEXTROSE 40% GEL 15 GM TUBE PO PRN ×2 (08:35)
[2020-06-19] MEDS ORDERED: GLUCAGON,HUMAN RECOMB 1 MG INJ IM PRN (08:35)
[2020-06-19 10:23] LABS: ABSOLUTE BASOPHILS # (AUTO) 0.1 10^3/uL (0.0-0.2); ABSOLUTE LYMPHOCYTES (AUTO) 0.7 10^3/uL (0.5-4.7); ABSOLUTE MONOCYTES (AUTO) 0.5 10^3/uL (0.1-1.4); ABSOLUTE NEUT (AUTO) 6.1 10^3/uL (1.7-8.2); BASOPHILS % (AUTO) 0.8 % (0-2); EOSINOPHILS % (AUTO) 0.1 % (0-6); HEMATOCRIT 27.2 % (36.0-47.0); HEMOGLOBIN 9.4 g/dL (12.0-15.5); LYMPHOCYTES % (AUTO) 9.9 % (13-45); MEAN CORPUSCULAR HEMOGLOBIN 31.4 pg (27.0-33.4); MEAN CORPUSCULAR HGB CONC 34.7 g/dL (32.0-36.0); MEAN CORPUSCULAR VOLUME 91 fl (80-97); MONOCYTES % (AUTO) 7.1 % (3-13); PLATELET COUNT 219 10^3/uL (150-450); RED BLOOD COUNT 3.01 10^6/uL (3.72-5.28); RED CELL DISTRIBUTION WIDTH 11.9 % (11.5-14.0); SEGMENTED NEUTROPHILS % (AUTO) 82.1 % (42-78); TOTAL CELLS COUNTED % (AUTO) 100 %; WHITE BLOOD COUNT 7.5 10^3/uL (4.0-10.5)
[2020-06-19 10:39] LABS: INTERNATIONAL RATION (INR) 1.07; PROTHROMBIN TIME 14.1 SEC (11.4-15.4)
[2020-06-19 10:42] LABS: D-DIMER 1.02 ug/mL (0.00-0.50)
[2020-06-19 10:43] LABS: ALBUMIN 2.8 g/dL (3.5-5.0); ALKALINE PHOSPHATASE 87 U/L (38-126); ASPARTATE AMINO TRANSFERASE 28 U/L (14-36); BILIRUBIN,DIRECT 0.3 mg/dL (0.0-0.4); BILIRUBIN,TOTAL 0.5 mg/dL (0.2-1.3); BLOOD UREA NITROGEN 9 mg/dL (7-20); C-REACTIVE PROTEIN 42.7 mg/L (<10.0); GLUCOSE 130 mg/dL (75-110); POTASSIUM 3.7 mmol/L (3.6-5.0); TOTAL PROTEIN 5.5 g/dL (6.3-8.2)
[2020-06-19 10:46] LABS: CARBON DIOXIDE 29 mmol/L (22-30); CHLORIDE 108 mmol/L (98-107)
[2020-06-19 10:47] LABS: VANCOMYCIN,TROUGH 14.8 ug/mL (5.0-20.0)
[2020-06-19 10:50] LABS: ANION GAP 2 (5-19)
[2020-06-19 11:30] LABS: ERYTHROCYTE SEDIMENTATION RATE 48 mm/hr (0-30)
--- NOTE | 2020-06-19 11:30 | RADIOLOGY REPORT (SQ) ---
EXAM DESCRIPTION: CT HEAD COMBO IMAGES COMPLETED DATE/TIME: 06/19/2020 11:09 am REASON FOR STUDY: rule out CVA, increased ICP COMPARISON: 06/16/2020 TECHNIQUE: Axial images acquired through the brain without and with intravenous contrast. Images re viewed with bone, brain and subdural windows. Additional sagittal and coronal reconstructions were g enerated. Images stored on PACS. All CT scanners at this facility use dose modulation, iterative reconstruction, and/or weight based d osing when appropriate to reduce radiation dose to as low as reasonably achievable (ALARA). [facility]: Dose Right [facility]: CareDose [facility]: Dose Right [facility]: Teradose 4D [facility]: [email or web address] CONTRAST TYPE AND DOSE: contrast/concentration: Isovue 350.00 mmol/ml; Total Contrast Delivered: 50. 0 ml; Total Saline Delivered: 55.0 ml RENAL FUNCTION: Not available at time of dictation. RADIATION DOSE: CT Rad equipment meets quality standard of care and radiation dose reduction techniq ues were employed. CTDIvol: 48.8 mGy. DLP: 1719 mGy-cm.. LIMITATIONS: None. FINDINGS: VENTRICLES: Stable in size and configuration. Enlargement of the lateral ventricles most marked on the right. CEREBRUM: Postsurgical changes on the right with large area of encephalomalacia in the temporal lobe extending into the posterior frontal and parietal lobe. Diffuse cerebral atrophy. No intracranial h emorrhage. No abnormal enhancement. CEREBELLUM: No masses. No hemorrhage. No alteration of density. No evidence for acute infarction. No enhancing lesions. EXTRA-AXIAL SPACES: No fluid collections. No enhancing lesions. ORBITS AND GLOBE: No intra- or extraconal masses. Normal contour of globe without masses. CALVARIUM: No fracture. PARANASAL SINUSES: No fluid or mucosal thickening. SOFT TISSUES: No mass or hematoma. OTHER: No other significant finding. IMPRESSION: Postsurgical changes on the right. Generalize atrophy and small-vessel ischemic changes . No acute intracranial event. No abnormal enhancement. EVIDENCE OF ACUTE STROKE: NO. TECHNICAL DOCUMENTATION: JOB ID: [id number] Quality ID # [id number]: Final reports with documentation of one or more dose reduction techniques (e.g., Au tomated exposure control, adjustment of the mA and/or kV according to patient size, use of iterative reconstruction technique) 2010 [employer]- All Rights Reserved Reading location - IP/workstation name: [email or web address]
[2020-06-19] MEDS ORDERED: MORPHINE SULFATE 10 MG/ML INJ IV PRN (11:51)
[2020-06-19] MEDS ORDERED: OXYCODONE-ACETAMINOPHEN 5-325 MG TABLET PO PRN (11:52)
[2020-06-19] MEDS ORDERED: ONDANSETRON HCL INJ/PF 4 MG/2 ML SDV ONE (12:10)
[2020-06-19] MEDS ORDERED: OXYCODONE-ACETAMINOPHEN 5-325 MG TABLET ONE (12:11)
[2020-06-19] MEDS: ONDANSETRON HCL INJ/PF 4 MG/2 ML SDV IV PRN ×2 (12:14→18:25)
[2020-06-19] MEDS: LEVETIRACETAM 1000 MG/NACL-ISO 1,000 MG/100 ML RTUPB IV SCH (12:20)
[2020-06-19] MEDS: PANTOPRAZOLE SODIUM 40 MG VIAL IV SCH (12:23)
[2020-06-19] MEDS: DOXYCYCLINE HYCLATE 100 MG in DEXTROSE 5%-WATER 250 ML IV SCH ×2 (12:34→22:03)
[2020-06-19] MEDS: INSULIN LISPRO 100 UNIT/ML 3 ML VIAL SUBCUT SCH ×2 (13:28→18:17)
[2020-06-19] MEDS: NORMAL SALINE 10 ML SDV (SCHEDULED) IV SCH ×2 (13:28→22:00)
[2020-06-19] MEDS: ENOXAPARIN SODIUM INJ 40 MG/0.4 ML DISP.SYRIN SUBCUT SCH (13:28)
[2020-06-19] MEDS: ACETAMINOPHEN 325 MG TABLET PO SCH ×3 (13:55→18:19)
[2020-06-19] MEDS ORDERED: FENTANYL CITRATE INJ/PF 100 MCG/2 ML AMPUL ONE (14:34)
--- NOTE | 2020-06-19 15:13 | RADIOLOGY REPORT (SQ) ---
EXAM DESCRIPTION: PICC INSERTION IMAGES COMPLETED DATE/TIME: 06/19/2020 3:02 pm REASON FOR STUDY: poor IV access (despite 1 PICC already) COMPARISON: 06/17/2020 FLUOROSCOPY TIME: 46 seconds 2 images saved to PACS. TECHNIQUE: Fluoroscopic and ultrasound guided PICC placement. LIMITATIONS: None. PROCEDURE: After written consent and assessment were obtained, the patient was brought into the fluo roscopy room and placed supine on the table. Ultrasound evaluation of potential access sites were per formed. After successfully identifying a patent left basilic vein, the left arm was prepped and drape d in a sterile fashion along with the ultrasound probe. The entry site was anesthetized with 1% lidoc bee. A 21 gauge 7 cm needle was advanced through the skin and into the basilic vein under live ultra sound guidance. An ultrasound image was saved to PACS confirming access site. A .018 guide wire was then inserted through the needle and into the venous system. The needle was then removed and an 11 b lade scalpel was used to make a 1cm skin incision. A 5 fr peel-away sheath was advanced over the wir e and into the venous system. A measurement was then made using the existing wire and live fluoroscop ic guidance. The wire was then removed and trimmed. The PICC was advanced through the peel-away sheat h and into the venous system. The peel-away sheath was removed and the catheter was adhered to the pa tients arm with a stat lock. The catheter was then aspirated and flushed and a sterile bandage was pl aced over the access site. A fluoroscopic spot image was saved to PACS confirming the catheter tip w ithin the the SVC. IMPRESSION: SUCCESSFUL PLACEMENT OF A 5 FR DUAL LUMEN 41 CM PICC IN THE LEFT BASILIC VEIN. COMMENT: Patient medication list reviewed: Yes- Quality ID# [id number]:Eligible professional attests to doc umenting in the medical record they obtained, updated, or reviewed the patient's current medications. . Quality ID 145: Final reports for procedures using fluoroscopy that document radiation exposure chaparro sanya, or exposure time and number of fluorographic images (if radiation exposure indices are not avail able) Quality ID #76: The patient was prepped and draped using maximum sterile barrier technique including cap, mask, sterile gown, sterile gloves, a large sterile sheet, hand hygiene, and 2% Chlorhexidine fo r cutaneous antisepsis. When ultrasound is used, sterile ultrasound techniques are followed requiring sterile gel and sterile probes. TECHNICAL DOCUMENTATION: JOB ID: [id number] 2010 [employer]- All Rights Reserved rev-11/05 Reading location - IP/workstation name: [email or web address]
--- NOTE | 2020-06-19 19:48 | PDOC PROGRESS REPORT ---
Subjective Date:: 06/19/20 Subjective:: JUDITHO. This morning, she is awake, alert and talking. She is no longer having any writhing movements. She does endorse a headache and requests food/pain medications. Reason For Visit: ALTERED MENTAL STATUS, FEVER, CELLULITIS Physical Exam Vital Signs: Temp Pulse Resp BP Pulse Ox 97.9 F 83 20 126/61 H 90 L 06/19/20 07:40 06/19/20 07:40 06/19/20 07:40 06/19/20 07:40 06/19/20 07:40 Intake & Output 06/18/20 06/19/20 06/20/20 06:59 06:59 06:59 Intake Total 3773 2800 900 Output Total 2375 2275 1120 Balance 1398 525 -220 Weight 66.5 kg 85.7 kg General appearance: PRESENT: no acute distress, obese Eye exam: PRESENT: PERRLA. ABSENT: conjunctival injection, nystagmus, scleral icterus Mouth exam: PRESENT: moist Throat exam: ABSENT: post pharyngeal erythema Neck exam: ABSENT: JVD Respiratory exam: PRESENT: clear to auscultation nida, unlabored Cardiovascular exam: PRESENT: RRR GI/Abdominal exam: PRESENT: normal bowel sounds, soft. ABSENT: tenderness Gentrourinary exam: PRESENT: indwelling catheter Extremities exam: PRESENT: pedal edema Neurological exam: PRESENT: alert, awake, oriented to person, oriented to place, oriented to time, oriented to situation Psychiatric exam: PRESENT: anxious Skin exam: ABSENT: jaundice Results Laboratory Results: 06/19/20 09:53 06/19/20 09:53 06/19/20 06/19/20 06/19/20 09:53 09:53 09:53 WBC 7.5 RBC 3.01 L Hgb 9.4 L Hct 27.2 L MCV 91 MCH 31.4 MCHC 34.7 RDW 11.9 Plt Count 219 Seg Neutrophils % 82.1 H Sodium 139.0 Potassium 3.7 Chloride 108 H Carbon Dioxide 29 Anion Gap 2 L BUN 9 Creatinine 0.33 L 0.35 L Est GFR ( Amer) > 60 > 60 Glucose 130 H Calcium 8.0 L Magnesium 2.3 Ferritin 124.00 Total Bilirubin 0.5 AST 28 Alkaline Phosphatase 87 C-Reactive Protein 42.7 H Total Protein 5.5 L Albumin 2.8 L 06/16/20 13:50 Blood Blood Culture (PCR) - Final Staphylococcus Species 06/16/20 18:10 Cerebral Spinal Fluid - Tube 1 (Csf) Gram Stain - Final 06/16/20 18:10 Cerebral Spinal Fluid - Tube 1 (Csf) CSF Culture - Final NO GROWTH 3 DAYS 06/16/20 06/17/20 06/17/20 13:50 05:35 21:43 Creatine Kinase 250 H 168 H 320 H Impressions: Chest X-Ray 06/16/20 12:55 IMPRESSION: NO ACUTE RADIOGRAPHIC FINDING IN THE CHEST. Cervical Spine CT 06/16/20 13:15 IMPRESSION: Patient motion artifact limits evaluation of the C4/[address] evidence of acute osseous injury. If high clinical suspicion for C4/5 injury, recommend repeat evaluation. Head CT 06/19/20 00:00 IMPRESSION: Postsurgical changes on the right. Generalize atrophy and small- vessel ischemic changes. No acute intracranial event. No abnormal enhancement. EVIDENCE OF ACUTE STROKE: NO. PICC Line Insertion 06/19/20 00:00 IMPRESSION: SUCCESSFUL PLACEMENT OF A 5 FR DUAL LUMEN 41 CM PICC IN THE LEFT BASILIC VEIN. 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 Her states that over the last several days she has been having episodes of deep sleep and hyper-somnolence. Her daughter tells me that patient has been complaining of a severe headache and neck stiffness since 06/13. She had fever to 103 degrees F at home. Unknown if she had any other symptoms while at home. In the ED, she was found to be exhibiting choreiform movements continuously. LP was performed, unfortunately due to inability to sedate her, the tap was bloody and no cell count could be performed. Extremely high protein levels in this sample were likely due to bloody tap. She was started on presumed meningitis treatment with acyclovir, meropenem and vancomycin. I spoke with [facility] on 06/17, where her neurologist is - unfortunately I was unable to reach her own neurologist, but I did speak to Dr. Galloway (neuro direct sales professional) who recommended to pursue a MRI brain. We had to given excessively large doses of Ativan to reduce choreiform movements, and it was unfortunately not possible to obtain MRI as we can not do sedation protocol MRI here at [facility]. LP was repeated on 06/17 evening. Opening pressure was 20 (normal) and cell co unt was notable for mononuclear predominance and elevated protein. ID was consulted on 06/18. They felt that differential diagnoses included causes of encephalitis, including: Listeria monocytogenes vs viral (HSV, VZV, WNV, Enterovirus, EBV) vs Rickettsial infection (would be rare at this time of the year but the patient does have several dogs and is at risk for potential dog tick exposure). She has been continued on the following treatment with improvement noted in her fever curve and mental status over the last 48 hours: - cefepime (D1: 06/16) - vancomycin (D1: 06/16, discontinued 06/19) - ampicillin 2g IV Q4H (D1: 06/18/2020) - acyclovir 10mg/kg IV Q8H (D1: 06/17/2020) - doxycycline 100 mg IV Q12H (D1: 06/18/2020) Other ID recommendations: - MRI may be helpful to look for temporal enhancement or vasculitis. - Duration of therapy for encephalitis (HSV or Listeria) would be a minimum of 3 weeks. - If there is clinical deterioration, transfer patient to a tertiary center with in-house ID and neurology. She had been on carbamazepine and gabapentin for many months prior to this hospitalization, and these are currently held. She did have a craniotomy with tumor removal many years ago, although her last screening MRI was just 2 months ago and showed no evidence of recurrence. She also takes pramipexole at home which is also currently held. Due to multiple IV medications and poor access, she has had 2 PICC lines placed this hospitalization. She began to wake up and become more interactive on 06/19. Her Oakes was removed and she was started on a diet. PT/OT have been consulted. She remains afebrile. CT head was repeated to rule out a possible stroke. EEG was performed (results pending). DVT ppx: Lovenox - Time Time Spent with patient: 35 or more minutes Anticipated Discharge Disposition: Home, Self Care Anticipated Discharge Timeframe: within 72 hours
[2020-06-19] MEDS ORDERED: KETOROLAC TROMETHAMINE INJ/PF 30 MG/1 ML SDV IV PRN (19:49)
--- NOTE | 2020-06-19 20:09 | NEURO WORKBENCH EEG REPORT ---
EEG Report Patient: September Selin ID: [id number] Referring Doctor: Santos Rodriguez DOS: 06/19/2020 Medications: acyclovir, ampicillin, cefipime, decadron, doxycycline, lovenox, porcine, protonix, vancomycin History This is a 55 year old right handed female with a history of stroke, brain tumor resected 4 years ago, hypertension who was admitted with AMS, fever, cellulitis. This EEG was requested for hypersomnolence, questionable epileptiform activity. EEG Interpretation This EEG was recorded without clear state with the patients eyes closed. The EEG is characterized by a disorganized background without a posterior dominant rhythm. There was reactivity to passive eye opening/closing. The remainder of the background was characterized by a combination of primarily delta and theta with some alpha frequencies. There was waxing and waning discharges most consistent with generalized periodic discharges (GPD). Photic stimulation resulted in no significant changes. There were no seizures noted. The EKG showed a regular rhythm. EEG Classification * Generalized periodic discharges * Generalized background slowing * Disorganization EEG Impression This EEG is severely abnormal. It is consistent with severe diffuse cerebral dysfunction. GPDs may be seen with several etiologies, including but not limited to anoxic, toxic/metabolic, infectious, and nonconvulsive status epilepticus. If there is a concern for seizures, treatment with antiepileptic medications should be considered. INTERPRETING NEUROLOGIST: Sari Maldonado MD, FRCPC Board Certified in Neurology, with special qualification in Child Neurology, and in Clinical Neurophysiology [facility]
[2020-06-19] MEDS ORDERED: PRAMIPEXOLE DI-HCL 0.5 MG TABLET PO ONE (22:45)
[2020-06-20] MEDS: DEXAMETHASONE SOD PHOS INJ 10 MG/1 ML VIAL IV SCH ×4 (00:20→17:28)
[2020-06-20] MEDS: INSULIN LISPRO 100 UNIT/ML 3 ML VIAL SUBCUT SCH ×4 (00:22→18:01)
[2020-06-20] MEDS: AMPICILLIN SODIUM 2 GM in NORMAL SALINE 100 ML IV SCH ×6 (00:22→20:45)
[2020-06-20] MEDS: CEFEPIME HCL 2 GM in DEXTROSE 5%-WATER 50 ML IV SCH ×2 (01:50→11:45)
[2020-06-20] MEDS: ONDANSETRON HCL INJ/PF 4 MG/2 ML SDV IV PRN (01:50)
[2020-06-20] MEDS ORDERED: MELATONIN 5 MG TABLET PO PRN (02:21)
[2020-06-20] MEDS ORDERED: CALCIUM CARBONATE 500 MG TAB.CHEW PO PRN (02:59)
[2020-06-20] MEDS: NORMAL SALINE IV SCH (06:17)
[2020-06-20] MEDS: ACYCLOVIR SODIUM IV SCH (06:17)
[2020-06-20] MEDS: PANTOPRAZOLE SODIUM 40 MG VIAL IV SCH (09:08)
[2020-06-20] MEDS: ENOXAPARIN SODIUM INJ 40 MG/0.4 ML DISP.SYRIN SUBCUT SCH (09:09)
[2020-06-20] MEDS: ACETAMINOPHEN 325 MG TABLET PO SCH ×3 (09:10→17:34)
[2020-06-20] MEDS ORDERED: CARBAMAZEPINE 200 MG TAB.SR.12H PO SCH (10:00)
[2020-06-20] MEDS: SPIRONOLACTONE 25 MG TABLET PO SCH (11:41)
[2020-06-20] MEDS: CARBAMAZEPINE 200 MG TABLET PO SCH ×2 (11:42→22:02)
[2020-06-20] MEDS: FUROSEMIDE 40 MG TABLET PO SCH (11:43)
[2020-06-20] MEDS: MONTELUKAST SODIUM 10 MG TABLET PO SCH (11:43)
[2020-06-20] MEDS: ASPIRIN 81 MG TABLET, ENT COATED PO SCH (11:43)
[2020-06-20] MEDS: NORMAL SALINE 10 ML SDV (SCHEDULED) IV SCH ×2 (11:44→22:02)
[2020-06-20] MEDS: DOXYCYCLINE HYCLATE 100 MG in DEXTROSE 5%-WATER 250 ML IV SCH ×2 (11:45→22:13)
[2020-06-20] MEDS: GABAPENTIN 400 MG CAPSULE PO SCH ×2 (14:19→22:01)
--- NOTE | 2020-06-20 14:28 | Progress Note ---
Provider Note Provider Note: [facility] ID Telephone Advice Consultation Chart reviewed, patient not seen. Update: Patient doing much better, mental status improved, chorea resolved. Still has headache and photophobia, but overall improved. Afebrile and HD stable. HPI: This is a 55-year-old woman with history of brain tumor s/p resection long time ago with surveillance brain MRI every year, most recent 2 months ago without evidence of recurrent disease. She had a stroke in 201 with residual hemiparesis for which she required rehab. On 06/14 per notes she started presenting changes in her mental status. Her noticed that she was falling asleep for hours and then wake up confused. This kept happening and he called EMS, patient was brought to the ED, she was found febrile. LP was hemorrhagic, therefore discarded, a repeat LP showed WBC 105 with 98% Mononuclear, Protein 142, RBC 14, glucose 44. CT scan did not show any va sogenic edema or new findings, only post-surgical changes. She was started on vancomycin, meropenem and acyclovir. Fever curve seems to be improving but patient is presenting chorea in her extremities. Apparently no traveling history, sick contacts or animal exposure. ID consulted for recommendations. Allergies: Sulfa (Sulfonamide Antibiotics) Allergy (Verified 12/23/11 00:46) Medications: Acetaminophen [Tylenol 325 mg Tablet] 650 mg PO DAILY 06/17/20 Aspirin [Aspirin 325 mg Tablet] 325 mg PO NOW 06/17/20 Carbamazepine [Tegretol Xr 200 mg Tab.sr] 400 mg PO BID 06/17/20 Furosemide [Lasix 40 mg Tablet] 40 mg PO QAM 06/17/20 Gabapentin [Neurontin] 1,200 mg PO TID 06/17/20 Lisinopril 20 mg PO DAILY 06/17/20 Montelukast Sodium [Singulair 10 mg Tablet] 10 mg PO DAILY 06/17/20 Pramipexole Di-HCl [Mirapex 0.5 Mg Tablet] 0.5 mg PO QHS 06/17/20 Spironolactone [Aldactone 100 mg Tablet] 1 tab PO DAILY 06/17/20 Vital Signs: Temp Pulse Resp BP Pulse Ox 97.5 F 55 L 16 130/74 H 98 06/20/20 11:29 06/20/20 13:25 06/20/20 13:25 06/20/20 11:29 06/20/20 13:25 Intake & Output 06/19/20 06/20/20 06/21/20 06:59 06:59 06:59 Intake Total 2800 1450 118 Output Total 2278 1120 Balance 525 330 118 Weight 85.7 kg 93 kg Weight/Height Weight 93 kg Height 5 ft 5 in Laboratories: 06/19/20 09:53 06/19/20 09:53 MCV 91 fl (80-97) 06/19/20 09:53 MCH 31.4 pg (27.0-33.4) 06/19/20 09:53 MCHC 34.7 g/dL (32.0-36.0) 06/19/20 09:53 RDW 11.9 % (11.5-14.0) 06/19/20 09:53 Seg Neutrophils % 82.1 % (42-78) H 06/19/20 09:53 Carbonic Acid 1.44 mmol/L (1.05-1.35) H 06/17/20 22:52 HCO3/H2CO3 Ratio 17:1 06/17/20 22:52 ABG pH 7.33 (7.35-7.45) L 06/17/20 22:52 ABG pCO2 48.0 mmHg (35-45) H 06/17/20 22:52 ABG pO2 139.1 mmHg (80-100) H 06/17/20 22:52 ABG HCO3 24.6 mmol/L (20-24) H 06/17/20 22:52 ABG O2 Saturation 98.6 % (94-98) H 06/17/20 22:52 ABG Base Excess -1.5 mmol/L 06/17/20 22:52 VBG pH 7.40 (7.30-7.42) 06/16/20 14:42 VBG pCO2 39.1 mmHg (35-63) 06/16/20 14:42 VBG HCO3 23.8 mmol/L (20-32) 06/16/20 14:42 VBG Base Excess -0.8 mmol/L 06/16/20 14:42 FiO2 100% 06/17/20 22:52 Chloride 108 mmol/L (98-107) H 06/19/20 09:53 Carbon Dioxide 29 mmol/L (22-30) 06/19/20 09:53 Anion Gap 2 (5-19) L 06/19/20 09:53 Est GFR ( Amer) > 60 (>60) 06/19/20 09:53 Est GFR ( Amer) > 60 (>60) 06/19/20 09:53 Glucose 130 mg/dL (75-110) H 06/19/20 09:53 Lactic Acid 0.9 mmol/L (0.7-2.1) 06/16/20 20:11 Calcium 8.0 mg/dL (8.4-10.2) L 06/19/20 09:53 Magnesium 2.3 mg/dL (1.6-2.3) 06/19/20 09:53 Ferritin 124.00 ng/mL (11.1-264.0) 06/19/20 09:53 Total Bilirubin 0.5 mg/dL (0.2-1.3) 06/19/20 09:53 AST 28 U/L (14-36) 06/19/20 09:53 Alkaline Phosphatase 87 U/L (38-126) 06/19/20 09:53 Ammonia < 8.7 umol/L (9-33) L 06/16/20 13:50 C-Reactive Protein 42.7 mg/L (<10.0) H 06/19/20 09:53 Total Protein 5.5 g/dL (6.3-8.2) L 06/19/20 09:53 Albumin 2.8 g/dL (3.5-5.0) L 06/19/20 09:53 TSH 6.17 uIU/mL (0.47-4.68) H 06/17/20 05:35 Free T4 0.71 ng/dL (0.78-2.19) L 06/17/20 05:35 Urine Color YELLOW 06/16/20 15:10 Urine Appearance CLEAR 06/16/20 15:10 Urine pH 7.0 (5.0-9.0) 06/16/20 15:10 Ur Specific [place] 1.024 06/16/20 15:10 Urine Protein 30 mg/dL (NEGATIVE) H 06/16/20 15:10 Urine Glucose (UA) NEGATIVE mg/dL (NEGATIVE) 06/16/20 15:10 Urine Ketones NEGATIVE mg/dL (NEGATIVE) 06/16/20 15:10 Urine Blood NEGATIVE (NEGATIVE) 06/16/20 15:10 Urine RBC (Auto) 1 /HPF 06/16/20 15:10 Fluid Tube Number 3 06/17/20 21:15 CSF Volume 19.5 CC 06/17/20 21:15 CSF Appearance Cancelled 06/16/20 18:10 CSF Color Cancelled 06/16/20 18:10 CSF WBC 105 /uL (0-5) H 06/17/20 21:15 CSF RBC 14 /uL (0-10) 06/17/20 21:15 CSF Color (1) PINK 06/17/20 21:15 CSF Appearance (1) SLIGHTLY HAZY 06/17/20 21:15 CSF Color (2) COLORLESS 06/17/20 21:15 CSF Appearance (2) CLEAR 06/17/20 21:15 CSF Color (3) COLORLESS 06/17/20 21:15 CSF Appearance (3) CLEAR 06/17/20 21:15 CSF Color (4) COLORLESS 06/17/20 21:15 CSF Appearance (4) CLEAR 06/17/20 21:15 CSF Polymorphonuclear 2 % 06/17/20 21:15 CSF Glucose 44 mg/dL (40-70) 06/17/20 21:15 CSF Total Protein 142 mg/dL (12-60) H 06/17/20 21:15 06/16/20 13:50 Blood Blood Culture (PCR) - Final Staphylococcus Species 06/16/20 13:50 Blood Blood Culture - Final Staphylococcus Capitis 06/17/20 21:15 Cerebral Spinal Fluid - Csf AFB Smear Concentration - Final 06/17/20 21:15 Cerebral Spinal Fluid - Csf Acid Fast Bacilli Smear - Final 06/16/20 06/17/20 06/17/20 13:50 05:35 21:43 Creatine Kinase 250 H 168 H 320 H Microbiology: Blood cultures: 06/16 Staphylococcus spp 1/2 sets 06/17 NGTD CSF culture: 06/16 NGTD 06/17 In process Radiology: Chest X-Ray 06/16/20 12:55 IMPRESSION: NO ACUTE RADIOGRAPHIC FINDING IN THE CHEST. Head CT 06/16/20 12:59 IMPRESSION: No significant interval change. Postsurgical changes in the right cerebrum are stable. No acute intracranial hemorrhage, mass, or evidence of acute territorial infarct. EVIDENCE OF ACUTE STROKE: NO. Cervical Spine CT 06/16/20 13:15 IMPRESSION: Patient motion artifact limits evaluation of the C4/[address] evidence of acute osseous injury. If high clinical suspicion for C4/5 injury, recommend repeat evaluation. PICC Line Insertion 06/17/20 00:00 IMPRESSION: SUCCESSFUL PLACEMENT OF A 5 FR DUAL LUMEN 36 CM PICC IN THE RIGHT BASILIC VEIN. Assessment and Recommendations: Patient evaluated due to probable encephalitis. She started with headache, then altered mental status and then choreiform movements. She was febrile. CSF analysis showing mononuclear predominance and elevated protein. She has received multiple antimicrobials and it is difficult to know what she responded to. Differential diagnosis in terms of etiology would likely be Listeria monocytogenes which can present with similar symptoms, it is unknown if she had any GI symptoms prior to this presentation but this bacteria can be acquired through contaminated food. Treatment is ampicillin 2g IV every 4 hr, will recommend to continue until July 07, 2020. She also received doxycycline for tickborne illness, can complete 10 days (EOT June 28, 2020). Her VZV IGG was elevate, unfortunately unable to check VZV PCR or IGG from CSF, significance of elevated serum VZV IGG is unknown without these other 2 tests. Can consider to complete therapy for VZV with Valacyclovir 1g TID to complete 10 days (EOT 06/26/2020). Please call back if questions. Theresa Obrien MD [facility] ID [phone]
[2020-06-20 14:37] LABS: ALPHA-1-GLOBULIN 1 4.1 % (1.1-6.6); ALPHA-2-GLOBULIN 7.6 % (3.0-12.6); CSF ALBUMIN 60.4 % (56.8-76.4); PRE ALBUMIN 1.6 % (2.2-7.1); TOTAL PROTEIN CSF PE 104.6 mg/dL (0.0-44.0)
[2020-06-20 14:43] LABS: CSF PE GAMMA GLOBULIN 11.1 % (3.0-13.0); PROT ELEC MSPIKE 2.4 % (Not Observ)
[2020-06-20 18:58] LABS: HEMATOCRIT 26.8 % (36.0-47.0); HEMOGLOBIN 9.3 g/dL (12.0-15.5); MEAN CORPUSCULAR HEMOGLOBIN 31.7 pg (27.0-33.4); MEAN CORPUSCULAR HGB CONC 34.6 g/dL (32.0-36.0); MEAN CORPUSCULAR VOLUME 92 fl (80-97); PLATELET COUNT 268 10^3/uL (150-450); RED BLOOD COUNT 2.92 10^6/uL (3.72-5.28); RED CELL DISTRIBUTION WIDTH 12.3 % (11.5-14.0); WHITE BLOOD COUNT 6.8 10^3/uL (4.0-10.5)
--- NOTE | 2020-06-20 19:10 | PDOC PROGRESS REPORT ---
Subjective Date:: 06/20/20 Subjective:: NAEO. She is feeling much improved today. Reason For Visit: ALTERED MENTAL STATUS, FEVER, CELLULITIS Physical Exam Vital Signs: Temp Pulse Resp BP Pulse Ox 97.5 F 53 L 17 136/76 H 96 06/20/20 16:03 06/20/20 16:03 06/20/20 16:03 06/20/20 16:03 06/20/20 16:03 Intake & Output 06/19/20 06/20/20 06/21/20 06:59 06:59 06:59 Intake Total 2800 1450 436 Output Total 2275 1120 Balance 525 330 436 Weight 85.7 kg 93 kg General appearance: PRESENT: no acute distress, cooperative Eye exam: ABSENT: scleral icterus Mouth exam: PRESENT: moist Throat exam: ABSENT: post pharyngeal erythema Neck exam: ABSENT: JVD Respiratory exam: PRESENT: clear to auscultation nida Cardiovascular exam: PRESENT: RRR GI/Abdominal exam: PRESENT: normal bowel sounds, soft. ABSENT: tenderness Gentrourinary exam: ABSENT: indwelling catheter Extremities exam: ABSENT: pedal edema Neurological exam: PRESENT: alert, awake, oriented to person, oriented to place, oriented to time, oriented to situation Psychiatric exam: PRESENT: appropriate affect Skin exam: ABSENT: jaundice, rash Results Laboratory Results: 06/20/20 18:17 06/17/20 06/20/20 21:15 18:17 WBC 6.8 RBC 2.92 L Hgb 9.3 L Hct 26.8 L MCV 92 MCH 31.7 MCHC 34.6 RDW 12.3 Plt Count 268 CSF Total Protein PEP 104.6 H CSF Prealbumin 1.6 L CSF Albumin 60.4 CSF Nvknw-0-Hauybqxp 4.1 CSF Udgmd-2-Cfdqehkv 7.6 CSF Beta Globulin 15.2 CSF Gamma Globulin 11.1 CSF PEP M-Ramirez 2.4 H 06/16/20 13:50 Blood Blood Culture (PCR) - Final Staphylococcus Species 06/16/20 13:50 Blood Blood Culture - Final Staphylococcus Capitis 06/17/20 21:15 Cerebral Spinal Fluid - Csf AFB Smear Concentration - Final 06/17/20 21:15 Cerebral Spinal Fluid - Csf Acid Fast Bacilli Smear - Final 06/16/20 06/17/20 06/17/20 13:50 05:35 21:43 Creatine Kinase 250 H 168 H 320 H Impressions: Chest X-Ray 06/16/20 12:55 IMPRESSION: NO ACUTE RADIOGRAPHIC FINDING IN THE CHEST. Cervical Spine CT 06/16/20 13:15 IMPRESSION: Patient motion artifact limits evaluation of the C4/[address] evidence of acute osseous injury. If high clinical suspicion for C4/5 injury, recommend repeat evaluation. Head CT 06/19/20 00:00 IMPRESSION: Postsurgical changes on the right. Generalize atrophy and small- vessel ischemic changes. No acute intracranial event. No abnormal enhancement. EVIDENCE OF ACUTE STROKE: NO. PICC Line Insertion 06/19/20 00:00 IMPRESSION: SUCCESSFUL PLACEMENT OF A 5 FR DUAL LUMEN 41 CM PICC IN THE LEFT BASILIC VEIN. 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 Her states that over the last several days she has been having episodes of deep sleep and hyper-somnolence. Her daughter tells me that patient has been complaining of a severe headache and neck stiffness since 06/13. She had fever to 103 degrees F at home. Unknown if she had any other symptoms while at home. In the ED, she was found to be exhibiting choreiform movements continuously. LP was performed, unfortunately due to inability to sedate her, t he tap was bloody and no cell count could be performed. Extremely high protein levels in this sample were likely due to bloody tap. She was started on presumed meningitis treatment with acyclovir, meropenem and vancomycin. I spoke with [facility] on 06/17, where her neurologist is - unfortunately I was unable to reach her own neurologist, but I did speak to Dr. Galloway (neuro dean of education) who recommended to pursue a MRI brain. We had to given excessively large doses of Ativan to reduce choreiform movements, and it was unfortunately not possible to obtain MRI as we can not do sedation protocol MRI here at [facility]. LP was repeated on 06/17 evening. Opening pressure was 20 (normal) and cell count was notable for mononuclear predominance and elevated protein. ID was consulted on 06/18. They felt that differential diagnoses included causes of encephalitis, including: Listeria monocytogenes vs viral (HSV, VZV, WNV, Enterovirus, EBV) vs Rickettsial infection (would be rare at this time of the year but the patient does have several dogs and is at risk for potential dog tick exposure). She has been continued on the following treatment with improvement noted in her fever curve and mental status over the last 48 hours: - cefepime (D1: 06/16, discontinued 06/20) - vancomycin (D1: 06/16, discontinued 06/19) - ampicillin 2g IV Q4H (D1: 06/18/2020) - acyclovir 10mg/kg IV Q8H (D1: 06/17/2020, discontinued 06/20) - doxycycline 100 mg IV Q12H (D1: 06/18/2020) Due to multiple IV medications and poor access, she has had 2 PICC lines placed this hospitalization. She began to wake up and become more interactive on 06/19. Her Oakes was removed and she was started on a diet. CT head was repeated to rule out a possible stroke. ID was reconsulted on 06/20 for discharge medication recommendations. They recommend: - continue ampicillin 2g IV every 4 hr for total 21 day course of therapy until July 07, 2020 - doxycycline x10 days (EOT June 28, 2020) - VZV IGG was elevated, unfortunately unable to check VZV PCR or IGG from CSF, significance of elevated serum VZV IGG is unknown without these other 2 tests. Can consider to complete therapy for VZV with Valacyclovir 1g TID to complete 10 days (EOT 06/26/2020). DC planning consulted to set up home infusion therapy. DVT ppx: Lovenox - Time Time Spent with patient: 35 or more minutes Anticipated Discharge Disposition: Home with Home Health Anticipated Discharge Timeframe: within 24 hours
[2020-06-20 19:19] LABS: ALBUMIN 3.3 g/dL (3.5-5.0); ALKALINE PHOSPHATASE 90 U/L (38-126); ANION GAP 11 (5-19); ASPARTATE AMINO TRANSFERASE 52 U/L (14-36); BILIRUBIN,DIRECT 0.5 mg/dL (0.0-0.4); BILIRUBIN,TOTAL 0.6 mg/dL (0.2-1.3); BLOOD UREA NITROGEN 20 mg/dL (7-20); CARBON DIOXIDE 26 mmol/L (22-30); CHLORIDE 102 mmol/L (98-107); GLUCOSE 207 mg/dL (75-110); POTASSIUM 3.6 mmol/L (3.6-5.0); TOTAL PROTEIN 5.9 g/dL (6.3-8.2)
[2020-06-20] MEDS ORDERED: PRAMIPEXOLE DI-HCL 0.5 MG TABLET PO SCH (22:00)
[2020-06-20] MEDS: PRAMIPEXOLE DI-HCL 0.5 MG TABLET PO SCH (22:01)
[2020-06-20] MEDS: VALACYCLOVIR HCL 500 MG TABLET PO SCH (22:01)
[2020-06-21] MEDS: INSULIN LISPRO 100 UNIT/ML 3 ML VIAL SUBCUT SCH ×5 (01:00→21:33)
[2020-06-21] MEDS: AMPICILLIN SODIUM 2 GM in NORMAL SALINE 100 ML IV SCH ×6 (02:10→20:30)
[2020-06-21] MEDS: DEXAMETHASONE SOD PHOS INJ 10 MG/1 ML VIAL IV SCH ×4 (02:10→17:54)
[2020-06-21] MEDS: GABAPENTIN 400 MG CAPSULE PO SCH ×3 (06:53→21:43)
[2020-06-21] MEDS: VALACYCLOVIR HCL 500 MG TABLET PO SCH ×3 (06:53→21:47)
[2020-06-21] MEDS: SPIRONOLACTONE 25 MG TABLET PO SCH (09:47)
[2020-06-21] MEDS: ACETAMINOPHEN 325 MG TABLET PO SCH ×3 (09:48→21:43)
[2020-06-21] MEDS: FUROSEMIDE 40 MG TABLET PO SCH (09:48)
[2020-06-21] MEDS: CARBAMAZEPINE 200 MG TABLET PO SCH ×2 (09:48→21:47)
[2020-06-21] MEDS: MONTELUKAST SODIUM 10 MG TABLET PO SCH (09:49)
[2020-06-21] MEDS: ASPIRIN 81 MG TABLET, ENT COATED PO SCH (09:49)
[2020-06-21] MEDS: PANTOPRAZOLE SODIUM 40 MG VIAL IV SCH (09:50)
[2020-06-21] MEDS: ENOXAPARIN SODIUM INJ 40 MG/0.4 ML DISP.SYRIN SUBCUT SCH (09:51)
[2020-06-21] MEDS: DOXYCYCLINE HYCLATE 100 MG in DEXTROSE 5%-WATER 250 ML IV SCH ×2 (09:52→22:33)
[2020-06-21] MEDS: NORMAL SALINE 10 ML SDV (SCHEDULED) IV SCH ×2 (11:16→21:45)
--- NOTE | 2020-06-21 18:43 | PDOC PROGRESS REPORT ---
Subjective Date:: 06/21/20 Subjective:: NAEO Reason For Visit: ALTERED MENTAL STATUS, FEVER, CELLULITIS Physical Exam Vital Signs: Temp Pulse Resp BP Pulse Ox 98.0 F 62 18 135/69 H 100 06/21/20 15:51 06/21/20 15:51 06/21/20 15:51 06/21/20 15:51 06/21/20 15:51 Intake & Output 06/20/20 06/21/20 06/22/20 06:59 06:59 06:59 Intake Total 1450 1596 450 Output Total 1120 Balance 330 1596 450 Weight 93 kg 94.8 kg General appearance: PRESENT: no acute distress, cooperative, obese Eye exam: ABSENT: scleral icterus Mouth exam: PRESENT: moist Throat exam: ABSENT: post pharyngeal erythema Neck exam: ABSENT: JVD Respiratory exam: PRESENT: clear to auscultation nida Cardiovascular exam: PRESENT: RRR GI/Abdominal exam: PRESENT: normal bowel sounds, soft. ABSENT: tenderness Gentrourinary exam: ABSENT: indwelling catheter Extremities exam: PRESENT: pedal edema Musculoskeletal exam: PRESENT: ambulatory Neurological exam: PRESENT: alert, awake, oriented to person, oriented to place, oriented to time, oriented to situation Psychiatric exam: PRESENT: appropriate affect Skin exam: ABSENT: jaundice, rash Results Laboratory Results: 06/20/20 18:17 06/20/20 18:17 06/20/20 06/20/20 18:17 18:17 WBC 6.8 RBC 2.92 L Hgb 9.3 L Hct 26.8 L MCV 92 MCH 31.7 MCHC 34.6 RDW 12.3 Plt Count 268 Sodium 138.5 Potassium 3.6 Chloride 102 Carbon Dioxide 26 Anion Gap 11 BUN 20 Creatinine 0.56 Est GFR ( Amer) > 60 Glucose 207 H Calcium 9.0 Magnesium 2.1 Total Bilirubin 0.6 AST 52 H Alkaline Phosphatase 90 Total Protein 5.9 L Albumin 3.3 L 06/16/20 16:20 Blood Blood Culture - Final NO GROWTH IN 5 DAYS 06/16/20 06/17/20 06/17/20 13:50 05:35 21:43 Creatine Kinase 250 H 168 H 320 H Impressions: Chest X-Ray 06/16/20 12:55 IMPRESSION: NO ACUTE RADIOGRAPHIC FINDING IN THE CHEST. Cervical Spine CT 06/16/20 13:15 IMPRESSION: Patient motion artifact limits evaluation of the C4/[address] evidence of acute osseous injury. If high clinical suspicion for C4/5 injury, recommend repeat evaluation. Head CT 06/19/20 00:00 IMPRESSION: Postsurgical changes on the right. Generalize atrophy and small- vessel ischemic changes. No acute intracranial event. No abnormal enhancement. EVIDENCE OF ACUTE STROKE: NO. PICC Line Insertion 06/19/20 00:00 IMPRESSION: SUCCESSFUL PLACEMENT OF A 5 FR DUAL LUMEN 41 CM PICC IN THE LEFT BASILIC VEIN. 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 Her states that over the last several days she has been having episodes of deep sleep and hyper-somnolence. Her daughter tells me that patient has been complaining of a severe headache and neck stiffness since 06/13. She had fever to 103 degrees F at home. Unknown if she had any other symptoms while at home. In the ED, she was found to be exhibiting choreiform movements continuously. LP was performed, unfortunately due to inability to sedate her, the tap was bloody and no cell count could be performed. Extremely high protein levels in this sample were likely due to bloody tap. She was started on presumed meningitis treatment with acyclovir, meropenem and vancomycin. I spoke with [facility] on 06/17, where her neurologist is - unfortunately I was unable to reach her own neurologist, but I did speak to Dr. Galloway (neuro skilled nursing professional) who recommended to pursue a MRI brain. We had to given excessively large doses of Ativan to reduce choreiform movements, and it was unfortunately not possible to obtain MRI as we can not do sedation protocol MRI here at [facility]. LP was repeated on 06/17 evening. Opening pressure was 20 (normal) and cell count was notable for mononuclear predominance and elevated protein. ID was consulted on 06/18. They felt that differential diagnoses included causes of encephalitis, including: Listeria monocytogenes vs viral (HSV, VZV, WNV, Enterovirus, EBV) vs Rickettsial infection (would be rare at this time of the year but the patient does have several dogs and is at risk for potential dog t ick exposure). She has been continued on the following treatment with improvement noted in her fever curve and mental status over the last 48 hours: - cefepime (D1: 06/16, discontinued 06/20) - vancomycin (D1: 06/16, discontinued 06/19) - ampicillin 2g IV Q4H (D1: 06/18/2020) - acyclovir 10mg/kg IV Q8H (D1: 06/17/2020, discontinued 06/20) - doxycycline 100 mg IV Q12H (D1: 06/18/2020) Due to multiple IV medications and poor access, she has had 2 PICC lines placed this hospitalization. She began to wake up and become more interactive on 06/19. Her Oakes was removed and she was started on a diet. CT head was repeated to rule out a possible stroke. ID was reconsulted on 06/20 for discharge medication recommendations. They recommend: - continue ampicillin 2g IV every 4 hr for total 21 day course of therapy until July 07, 2020 - doxycycline x10 days (EOT June 28, 2020) - VZV IGG was elevated, unfortunately unable to check VZV PCR or IGG from CSF, significance of elevated serum VZV IGG is unknown without these other 2 tests. Can consider to complete therapy for VZV with Valacyclovir 1g TID to complete 10 days (EOT 06/26/2020). DC planning consulted to set up home infusion therapy. DVT ppx: Lovenox - Time Time Spent with patient: 35 or more minutes Anticipated Discharge Disposition: Home with Home Health Anticipated Discharge Timeframe: within 24 hours
[2020-06-21] MEDS: PRAMIPEXOLE DI-HCL 0.5 MG TABLET PO SCH (21:46)
[2020-06-22] MEDS: AMPICILLIN SODIUM 2 GM in NORMAL SALINE 100 ML IV SCH ×6 (00:54→22:02)
[2020-06-22] MEDS: VALACYCLOVIR HCL 500 MG TABLET PO SCH ×3 (05:43→22:02)
[2020-06-22] MEDS: GABAPENTIN 400 MG CAPSULE PO SCH ×4 (05:47→22:02)
[2020-06-22] MEDS: ONDANSETRON HCL INJ/PF 4 MG/2 ML SDV IV PRN (05:52)
[2020-06-22] MEDS: DOXYCYCLINE HYCLATE 100 MG in DEXTROSE 5%-WATER 250 ML IV SCH (09:22)
[2020-06-22] MEDS: CARBAMAZEPINE 200 MG TABLET PO SCH ×2 (09:25→21:16)
[2020-06-22] MEDS: ASPIRIN 81 MG TABLET, ENT COATED PO SCH (09:26)
[2020-06-22] MEDS: FUROSEMIDE 40 MG TABLET PO SCH (09:27)
[2020-06-22] MEDS: SPIRONOLACTONE 25 MG TABLET PO SCH (09:27)
[2020-06-22] MEDS: ACETAMINOPHEN 325 MG TABLET PO SCH ×3 (09:27→22:03)
[2020-06-22] MEDS: MONTELUKAST SODIUM 10 MG TABLET PO SCH (09:28)
[2020-06-22] MEDS: ENOXAPARIN SODIUM INJ 40 MG/0.4 ML DISP.SYRIN SUBCUT SCH (10:50)
[2020-06-22] MEDS: NORMAL SALINE 10 ML SDV (SCHEDULED) IV SCH ×2 (10:52→21:16)
[2020-06-22 13:55] LABS: ANION GAP 7 (5-19); BLOOD UREA NITROGEN 14 mg/dL (7-20); CALCIUM 8.8 mg/dL (8.4-10.2); CARBON DIOXIDE 36 mmol/L (22-30); CHLORIDE 97 mmol/L (98-107); GLUCOSE 107 mg/dL (75-110); POTASSIUM 3.1 mmol/L (3.6-5.0)
[2020-06-22 14:00] LABS: ABSOLUTE BASOPHILS # (AUTO) 0.1 10^3/uL (0.0-0.2); ABSOLUTE EOSINOPHILS # (AUTO) 0.2 10^3/uL (0.0-0.6); ABSOLUTE LYMPHOCYTES (AUTO) 1.6 10^3/uL (0.5-4.7); ABSOLUTE MONOCYTES (AUTO) 0.8 10^3/uL (0.1-1.4); ABSOLUTE NEUT (AUTO) 5.1 10^3/uL (1.7-8.2); BASOPHILS % (AUTO) 0.7 % (0-2); HEMOGLOBIN 10.4 g/dL (12.0-15.5); LYMPHOCYTES % (AUTO) 20.9 % (13-45); MEAN CORPUSCULAR HEMOGLOBIN 31.6 pg (27.0-33.4); MEAN CORPUSCULAR HGB CONC 34.6 g/dL (32.0-36.0); MEAN CORPUSCULAR VOLUME 91 fl (80-97); MONOCYTES % (AUTO) 10.1 % (3-13); PLATELET COUNT 311 10^3/uL (150-450); RED BLOOD COUNT 3.29 10^6/uL (3.72-5.28); RED CELL DISTRIBUTION WIDTH 12.3 % (11.5-14.0); SEGMENTED NEUTROPHILS % (AUTO) 66.3 % (42-78); TOTAL CELLS COUNTED % (AUTO) 100 %; WHITE BLOOD COUNT 7.7 10^3/uL (4.0-10.5)
[2020-06-22] MEDS ORDERED: LOPERAMIDE HCL 2 MG CAPSULE PO PRN (14:39)
[2020-06-22] MEDS ORDERED: POTASSIUM CHLORIDE 10 MEQ TABLET.ER PO ONE ×2 (15:00→18:36)
[2020-06-22] MEDS ORDERED: ALTEPLASE INJ 2 MG VIAL (CATH CLEARANCE) IV ONE ×2 (18:41→18:53)
[2020-06-22] MEDS ORDERED: METOCLOPRAMIDE HCL INJ/PF 10 MG/2 ML SDV IV ONE (18:53)
[2020-06-22] MEDS ORDERED: LOPERAMIDE HCL 2 MG CAPSULE PO ONE (18:54)
[2020-06-22] MEDS ORDERED: KETOROLAC TROMETHAMINE INJ/PF 30 MG/1 ML SDV IV ONE (18:54)
--- NOTE | 2020-06-22 19:01 | PDOC PROGRESS REPORT ---
Subjective Date:: 06/22/20 Subjective:: She is having several episodes of watery diarrhea per day. No nausea/vomiting or abdominal pain/distention. No fevers/chills. She is eating okay. Otherwise, no concerns. Reason For Visit: ALTERED MENTAL STATUS, FEVER, CELLULITIS Physical Exam Vital Signs: Temp Pulse Resp BP Pulse Ox 97.7 F 67 18 142/63 H 98 06/22/20 15:05 06/22/20 15:05 06/22/20 15:05 06/22/20 15:05 06/22/20 15:05 Intake & Output 06/21/20 06/22/20 06/23/20 06:59 06:59 06:59 Intake Total 1596 1240 550 Output Total 500 Balance 1596 1240 50 Weight 94.8 kg 89.8 kg General appearance: PRESENT: no acute distress, cooperative Eye exam: ABSENT: scleral icterus Mouth exam: PRESENT: moist Throat exam: ABSENT: post pharyngeal erythema Neck exam: ABSENT: JVD Respiratory exam: PRESENT: clear to auscultation nida Cardiovascular exam: PRESENT: RRR GI/Abdominal exam: PRESENT: normal bowel sounds, soft. ABSENT: distended, firm, rebound, rigid, tenderness Gentrourinary exam: ABSENT: indwelling catheter Extremities exam: PRESENT: pedal edema Musculoskeletal exam: PRESENT: ambulatory Neurological exam: PRESENT: alert, awake, oriented to person, oriented to place, oriented to time, oriented to situation Psychiatric exam: PRESENT: appropriate affect Skin exam: ABSENT: jaundice, rash Results Laboratory Results: 06/22/20 13:00 06/22/20 13:00 06/22/20 06/22/20 13:00 13:00 WBC 7.7 RBC 3.29 L Hgb 10.4 L Hct 30.0 L MCV 91 MCH 31.6 MCHC 34.6 RDW 12.3 Plt Count 311 Seg Neutrophils % 66.3 Sodium 139.9 Potassium 3.1 L Chloride 97 L Carbon Dioxide 36 H Anion Gap 7 BUN 14 Creatinine 0.44 L Est GFR ( Amer) > 60 Glucose 107 Calcium 8.8 Magnesium 1.8 06/17/20 14:41 Blood Blood Culture - Final NO GROWTH IN 5 DAYS 06/17/20 15:01 Blood Blood Culture - Final NO GROWTH IN 5 DAYS 06/17/20 21:15 Cerebral Spinal Fluid - Csf Enterovirus RNA (PCR) - Final 06/16/20 16:20 Blood Blood Culture - Final NO GROWTH IN 5 DAYS 06/16/20 06/17/20 06/17/20 13:50 05:35 21:43 Creatine Kinase 250 H 168 H 320 H Impressions: Chest X-Ray 06/16/20 12:55 IMPRESSION: NO ACUTE RADIOGRAPHIC FINDING IN THE CHEST. Cervical Spine CT 06/16/20 13:15 IMPRESSION: Patient motion artifact limits evaluation of the C4/[address] evidence of acute osseous injury. If high clinical suspicion for C4/5 injury, recommend repeat evaluation. Head CT 06/19/20 00:00 IMPRESSION: Postsurgical changes on the right. Generalize atrophy and small- vessel ischemic changes. No acute intracranial event. No abnormal enhancement. EVIDENCE OF ACUTE STROKE: NO. PICC Line Insertion 06/19/20 00:00 IMPRESSION: SUCCESSFUL PLACEMENT OF A 5 FR DUAL LUMEN 41 CM PICC IN THE LEFT BASILIC VEIN. 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 Her states that over the last several days she has been having episodes of deep sleep and hyper-somnolence. Her daughter tells me that patient has been complaining of a severe headache and neck stiffness since 06/13. She had fever to 103 degrees F at home. Unknown if she had any other symptoms while at home. In the ED, she was found to be exhibiting choreiform movements continuously. LP was performed, unfortunately due to inability to sedate her, the tap was bloody and no cell count could be performed. Extremely high protein levels in this sample were likely due to bloody tap. She was started on presumed meningitis treatment with acyclovir, meropenem and vancomycin. I spoke with [facility] on 06/17, where her neurologist is - unfortunately I was unable to reach her own neurologist, but I did speak to Dr. Galloway (neuro section cutter) who recommended to pursue a MRI brain. We had to given excessively large doses of Ativan to reduce choreiform movements, and it was unfortunately not possible to obtain MRI as we can not do sedation protocol MRI here at [facility]. LP was repeated on 06/17 evening. Opening pressure was 20 (normal) and cell c ount was notable for mononuclear predominance and elevated protein. ID was consulted on 06/18. They felt that differential diagnoses included causes of encephalitis, including: Listeria monocytogenes vs viral (HSV, VZV, WNV, Enterovirus, EBV) vs Rickettsial infection (would be rare at this time of the year but the patient does have several dogs and is at risk for potential dog tick exposure). She has been continued on the following treatment with improvement noted in her fever curve and mental status x48 hours: - cefepime - vancomycin - ampicillin 2g IV Q4H - acyclovir 10mg/kg IV Q8H - doxycycline 100 mg IV Q12H She began to wake up and become more interactive on 06/19. Her Oakes was removed and she was started on a diet. CT head was repeated to rule out a possible stroke and it was negative. ID was reconsulted on 06/20 for discharge medication recommendations: - continue ampicillin 2g IV every 4 hr for total 21 day course of therapy (06/19/2020 to 07/09/2020) - doxycycline x10 days (06/19/2020 to 06/28/2020) - VZV serum IGG was elevated, unfortunately unable to check VZV PCR or IGG from CSF, and significance of elevated serum VZV serum IGG is unknown without these other tests. Therefore, will complete Valacyclovir 1g TID x10 days (06/19/2020 to 06/28/2020) DC planning consulted to set up home infusion therapy. DVT ppx: Lovenox - Time Time Spent with patient: 35 or more minutes Anticipated Discharge Disposition: Home with Home Health Anticipated Discharge Timeframe: within 24 hours
[2020-06-22] MEDS: PRAMIPEXOLE DI-HCL 0.5 MG TABLET PO SCH (21:15)
[2020-06-22] MEDS ORDERED: ALTEPLASE INJ 2 MG VIAL (CATH CLEARANCE) ONE (21:35)
[2020-06-22] MEDS ORDERED: DOXYCYCLINE HYCLATE 100 MG TABLET PO ONE (21:42)
[2020-06-22] MEDS: DOXYCYCLINE HYCLATE 100 MG TABLET PO SCH (22:03)
[2020-06-23] MEDS: AMPICILLIN SODIUM 2 GM in NORMAL SALINE 100 ML IV SCH ×4 (00:34→11:00)
[2020-06-23] MEDS: GABAPENTIN 400 MG CAPSULE PO SCH (05:27)
[2020-06-23] MEDS: ACETAMINOPHEN 325 MG TABLET PO SCH (05:27)
[2020-06-23] MEDS: VALACYCLOVIR HCL 500 MG TABLET PO SCH (05:27)
[2020-06-23 06:03] LABS: HEMATOCRIT 27.4 % (36.0-47.0); HEMOGLOBIN 9.5 g/dL (12.0-15.5); MEAN CORPUSCULAR HEMOGLOBIN 31.9 pg (27.0-33.4); MEAN CORPUSCULAR HGB CONC 34.7 g/dL (32.0-36.0); MEAN CORPUSCULAR VOLUME 92 fl (80-97); PLATELET COUNT 269 10^3/uL (150-450); RED BLOOD COUNT 2.98 10^6/uL (3.72-5.28); RED CELL DISTRIBUTION WIDTH 12.7 % (11.5-14.0); WHITE BLOOD COUNT 5.3 10^3/uL (4.0-10.5)
[2020-06-23 06:23] LABS: BLOOD UREA NITROGEN 13 mg/dL (7-20); CALCIUM 8.3 mg/dL (8.4-10.2); CHLORIDE 100 mmol/L (98-107); GLUCOSE 87 mg/dL (75-110); POTASSIUM 3.5 mmol/L (3.6-5.0)
[2020-06-23 06:29] LABS: CARBON DIOXIDE 37 mmol/L (22-30)
[2020-06-23 06:45] LABS: ANION GAP 2 (5-19)
[2020-06-23 08:57] VITALS: BP 115/64
[2020-06-23] MEDS: ASPIRIN 81 MG TABLET, ENT COATED PO SCH (09:46)
[2020-06-23] MEDS: MONTELUKAST SODIUM 10 MG TABLET PO SCH (09:46)
[2020-06-23] MEDS: NORMAL SALINE 10 ML SDV (SCHEDULED) IV SCH (09:46)
[2020-06-23] MEDS: DOXYCYCLINE HYCLATE 100 MG TABLET PO SCH (09:46)
[2020-06-23] MEDS: CARBAMAZEPINE 200 MG TABLET PO SCH (09:46)
[2020-06-23] MEDS ORDERED: POTASSIUM CHLORIDE 10 MEQ TABLET.ER PO SCH (10:00)
[2020-06-23] MEDS: ONDANSETRON HCL INJ/PF 4 MG/2 ML SDV IV PRN (11:03)
--- NOTE | 2020-06-23 19:30 | PDOC DISCHARGE SUMMARY ---
Impression - Admit/DC Date/PCP Admission Date/Primary Care Provider: 06/16/20 18:44 KIRBY GORE NP Discharge Date: 06/23/20 - Discharge Diagnosis (1) Encephalitis Is this a current diagnosis for this admission?: Yes (2) Acute metabolic encephalopathy Is this a current diagnosis for this admission?: Yes (3) Chorea Is this a current diagnosis for this admission?: Yes (4) Fever Is this a current diagnosis for this admission?: Yes (5) Snoring Is this a current diagnosis for this admission?: Yes - Assessment Summary: DANIEL GAY is a 55 year old female with PMH of brain tumor s/p resection and CVA in 2011 who presented on 06/16/2020 due to AMS and abnormal movements of her body. Her states that over the last several days she has been having episodes of deep sleep and hyper-somnolence. Her daughter tells me that patient has been complaining of a severe headache and neck stiffness since 06/13. She had fever to 103 degrees F at home. Unknown if she had any other symptoms while at home. In the ED, she was found to be exhibiting choreiform movements continuously. LP was performed, unfortunately due to inability to sedate her, the tap was bloody and no cell count could be performed. Extremely high protein levels in this sample were likely due to bloody tap. She was started on presumed meningitis treatment with acyclovir, meropenem and vancomycin. I spoke with [facility] on 06/17, where her neurologist is - unfortunately I was unable to reach her own neurologist, but I did speak to Dr. Galloway (neuro naturalization examiner) who recommended to pursue a MRI brain. We had to given excessively large doses of Ativan to reduce choreiform movements, and it was unfortunately not possible to obtain MRI as we can not do sedation protocol MRI here at [facility]. LP was repeated on 06/17 evening. Opening pressure was 20 (normal) and cell count was notable for mononuclear predominance and elevated protein. ID was consulted on 06/18. They felt that differential diagnoses included causes of encephalitis, including: Listeria monocytogenes vs viral (HSV, VZV, WNV, Enterovirus, EBV) vs Rickettsial infection (would be rare at this time of the year but the patient does have several dogs and is at risk for potential dog tick exposure). She has been continued on the following treatment with improvement noted in her fever curve and mental status x48 hours: - cefepime - vancomycin - ampicillin 2g IV Q4H - acyclovir 10mg/kg IV Q8H - doxycycline 100 mg IV Q12H She began to wake up and become more interactive on 06/19. Her [place] was removed and she was started on a diet. CT head was repeated to rule out a possible stroke and it was negative. ID was reconsulted on 06/20 for discharge medication recommendations: - continue ampicillin 2g IV every 4 hr for total 21 day course of therapy (06/19/2020 to 07/09/2020) - doxycycline x10 days (06/19/2020 to 06/28/2020) - VZV serum IGG was elevated, unfortunately unable to check VZV PCR or IGG from CSF, and significance of elevated serum VZV serum IGG is unknown without these other tests. Therefore, will complete Valacyclovir 1g TID x10 days (06/19/2020 to 06/28/2020) DC planning was consulted to set up home infusion therapy. She was discharged home in stable condition with RUE PICC line in place. - Additional Information Resuscitation Status: Full Code Discharge Diet: Regular Discharge Activity: Activity As Tolerated, Keep Legs Elevated, Slowly Increase Activity, Supervised Activity Referrals: KIRBY GORE NP [Primary Care Provider] - Prescriptions: Loperamide HCl/Simethicone [Imodium Multi-Symptom Rel Cplt] 1 each PO Q6HP PRN #30 tablet PRN Reason: Diarrhea Ampicillin Sodium [Omnipen Inj 2 gm Vial] 2 gm IVPB Q4H #17 each Ondansetron [Ondansetron Odt] 8 mg PO Q8HP PRN #30 tab.rapdis PRN Reason: nausea or vomiting Potassium Chloride 10 meq PO DAILY #30 tab.er.prt Valacyclovir HCl [Valacyclovir] 1,000 mg PO Q8H #18 tablet Doxycycline Hyclate [Vibramycin 100 mg Tablet] 100 mg PO BID #12 tablet Home Medications: Acetaminophen [Tylenol 325 mg Tablet] 650 mg PO DAILY 06/17/20 Aspirin [Aspirin 325 mg Tablet] 325 mg PO NOW 06/17/20 Carbamazepine [Tegretol Xr 200 mg Tab.sr] 400 mg PO BID 06/17/20 Furosemide [Lasix 40 mg Tablet] 40 mg PO QAM 06/17/20 Gabapentin [Neurontin] 1,200 mg PO TID 06/17/20 Lisinopril 20 mg PO DAILY 06/17/20 Montelukast Sodium [Singulair 10 mg Tablet] 10 mg PO DAILY 06/17/20 Pramipexole Di-HCl [Mirapex 0.5 mg Tablet] 0.5 mg PO QHS 06/17/20 Spironolactone [Aldactone 100 mg Tablet] 1 tab PO DAILY 06/17/20 Ampicillin Sodium [Omnipen Inj 2 gm Vial] 2 gm IVPB Q4H #17 each 06/22/20 Doxycycline Hyclate [Vibramycin 100 mg Tablet] 100 mg PO BID #12 tablet 06/22/20 Loperamide HCl/Simethicone [Imodium Multi-Symptom Rel Cplt] 1 each PO Q6HP PRN #30 tablet 06/22/20 Valacyclovir HCl [Valacyclovir] 1,000 mg PO Q8H #18 tablet 06/22/20 Ondansetron [Ondansetron Odt] 8 mg PO Q8HP PRN #30 tab.rapdis 06/23/20 Potassium Chloride 10 meq PO DAILY #30 tab.er.prt 06/23/20 History of Present Illiness History of Present Illness: DANIEL GAY is a 55 year old female Physical Exam Vital Signs: Temp Pulse Resp BP Pulse Ox 97.8 F 73 16 115/64 99 06/23/20 08:55 06/23/20 08:55 06/23/20 08:55 06/23/20 08:55 06/23/20 08:55 Intake & Output 06/22/20 06/23/20 06/24/20 06:59 06:59 06:59 Intake Total 1240 1450 100 Output Total 500 Balance 1240 950 100 Weight 89.8 kg 90.2 kg Results Laboratory Results: WBC 5.3 10^3/uL (4.0-10.5) 06/23/20 05:20 RBC 2.98 10^6/uL (3.72-5.28) L 06/23/20 05:20 Hgb 9.5 g/dL (12.0-15.5) L 06/23/20 05:20 Hct 27.4 % (36.0-47.0) L 06/23/20 05:20 MCV 92 fl (80-97) 06/23/20 05:20 MCH 31.9 pg (27.0-33.4) 06/23/20 05:20 MCHC 34.7 g/dL (32.0-36.0) 06/23/20 05:20 RDW 12.7 % (11.5-14.0) 06/23/20 05:20 Plt Count 269 10^3/uL (150-450) 06/23/20 05:20 Lymph % (Auto) 20.9 % (13-45) 06/22/20 13:00 [place] % (Auto) 10.1 % (3-13) 06/22/20 13:00 Eos % (Auto) 2.0 % (0-6) 06/22/20 13:00 Baso % (Auto) 0.7 % (0-2) 06/22/20 13:00 Absolute Neuts (auto) 5.1 10^3/uL (1.7-8.2) 06/22/20 13:00 Absolute Lymphs (auto) 1.6 10^3/uL (0.5-4.7) 06/22/20 13:00 Absolute Monos (auto) 0.8 10^3/uL (0.1-1.4) 06/22/20 13:00 Absolute Eos (auto) 0.2 10^3/uL (0.0-0.6) 06/22/20 13:00 Absolute Basos (auto) 0.1 10^3/uL (0.0-0.2) 06/22/20 13:00 Seg Neutrophils % 66.3 % (42-78) 06/22/20 13:00 ESR 48 mm/hr (0-30) H 06/19/20 09:53 PT 14.1 SEC (11.4-15.4) 06/19/20 09:53 INR 1.07 06/19/20 09:53 APTT 34.0 SEC (23.5-35.8) 06/19/20 09:53 D-Dimer 1.02 ug/mL (0.00-0.50) H 06/19/20 09:53 Carbonic Acid 1.44 mmol/L (1.05-1.35) H 06/17/20 22:52 HCO3/H2CO3 Ratio 17:1 06/17/20 22:52 ABG pH 7.33 (7.35-7.45) L 06/17/20 22:52 ABG pCO2 48.0 mmHg (35-45) H 06/17/20 22:52 ABG pO2 139.1 mmHg (80-100) H 06/17/20 22:52 ABG HCO3 24.6 mmol/L (20-24) H 06/17/20 22:52 ABG Total CO2 26.1 mmol/L (21-25) H 06/17/20 22:52 ABG O2 Saturation 98.6 % (94-98) H 06/17/20 22:52 ABG Base Excess -1.5 mmol/L 06/17/20 22:52 VBG pH 7.40 (7.30-7.42) 06/16/20 14:42 VBG pCO2 39.1 mmHg (35-63) 06/16/20 14:42 VBG HCO3 23.8 mmol/L (20-32) 06/16/20 14:42 VBG Base Excess -0.8 mmol/L 06/16/20 14:42 FiO2 100% 06/17/20 22:52 Sodium 139.2 mmol/L (137-145) 06/23/20 05:20 Potassium 3.5 mmol/L (3.6-5.0) L 06/23/20 05:20 Chloride 100 mmol/L (98-107) 06/23/20 05:20 Carbon Dioxide 37 mmol/L (22-30) H 06/23/20 05:20 Anion Gap 2 (5-19) L 06/23/20 05:20 BUN 13 mg/dL (7-20) 06/23/20 05:20 Creatinine 0.44 mg/dL (0.52-1.25) L 06/23/20 05:20 Est GFR ( Amer) > 60 (>60) 06/23/20 05:20 Est GFR (MDRD) Non-Af > 60 (>60) 06/23/20 05:20 Glucose 87 mg/dL (75-110) 06/23/20 05:20 POC Glucose 98 mg/dL (70-110) 06/22/20 06:26 Lactic Acid 0.9 mmol/L (0.7-2.1) 06/16/20 20:11 Calcium 8.3 mg/dL (8.4-10.2) L 06/23/20 05:20 Magnesium 1.9 mg/dL (1.6-2.3) 06/23/20 05:20 Ferritin 124.00 ng/mL (11.1-264.0) 06/19/20 09:53 Total Bilirubin 0.6 mg/dL (0.2-1.3) 06/20/20 18:17 Direct Bilirubin 0.5 mg/dL (0.0-0.4) H 06/20/20 18:17 Neonat Total Bilirubin Not Reportable 06/20/20 18:17 Neonat Direct Bilirubin Not Reportable 06/20/20 18:17 Neonat Indirect Bili Not Reportable 06/20/20 18:17 AST 52 U/L (14-36) H 06/20/20 18:17 ALT 59 U/L (<35) H 06/20/20 18:17 Alkaline Phosphatase 90 U/L (38-126) 06/20/20 18:17 Ammonia < 8.7 umol/L (9-33) L 06/16/20 13:50 Lactate Dehydrogenase 215 U/L (120-246) 06/19/20 09:53 Creatine Kinase 320 U/L (30-135) H 06/17/20 21:43 C-Reactive Protein 42.7 mg/L (<10.0) H 06/19/20 09:53 Total Protein 5.9 g/dL (6.3-8.2) L 06/20/20 18:17 Albumin 3.3 g/dL (3.5-5.0) L 06/20/20 18:17 TSH 6.17 uIU/mL (0.47-4.68) H 06/17/20 05:35 Free T4 0.71 ng/dL (0.78-2.19) L 06/17/20 05:35 Urine Color YELLOW 06/16/20 15:10 Urine Appearance CLEAR 06/16/20 15:10 Urine pH 7.0 (5.0-9.0) 06/16/20 15:10 Ur Specific [place] 1.024 06/16/20 15:10 Urine Protein 30 mg/dL (NEGATIVE) H 06/16/20 15:10 Urine Glucose (UA) NEGATIVE mg/dL (NEGATIVE) 06/16/20 15:10 Urine Ketones NEGATIVE mg/dL (NEGATIVE) 06/16/20 15:10 Urine Blood NEGATIVE (NEGATIVE) 06/16/20 15:10 Urine Nitrite (Reflex) NEGATIVE (NEGATIVE) 06/16/20 15:10 Urine Bilirubin NEGATIVE (NEGATIVE) 06/16/20 15:10 Urine Urobilinogen 4.0 mg/dL (<2.0) H 06/16/20 15:10 Leukocyte Esterase Rfl NEGATIVE (NEGATIVE) 06/16/20 15:10 Urine RBC (Auto) 1 /HPF 06/16/20 15:10 U Hyaline Cast (Auto) 1 /LPF 06/16/20 15:10 Urine WBC (Reflex) < 1 /HPF 06/16/20 15:10 Squamous Epi Cells Auto 1 /HPF 06/16/20 15:10 Urine Mucus (Auto) RARE /LPF 06/16/20 15:10 Urine Ascorbic Acid NEGATIVE (NEGATIVE) 06/16/20 15:10 Fluid Tube Number 3 06/17/20 21:15 CSF Volume 19.5 CC 06/17/20 21:15 CSF Appearance Cancelled 06/16/20 18:10 CSF Color Cancelled 06/16/20 18:10 CSF WBC 105 /uL (0-5) H 06/17/20 21:15 CSF RBC 14 /uL (0-10) 06/17/20 21:15 CSF Color (1) PINK 06/17/20 21:15 CSF Appearance (1) SLIGHTLY HAZY 06/17/20 21:15 CSF Color (2) COLORLESS 06/17/20 21:15 CSF Appearance (2) CLEAR 06/17/20 21:15 CSF Color (3) COLORLESS 06/17/20 21:15 CSF Appearance (3) CLEAR 06/17/20 21:15 CSF Color (4) COLORLESS 06/17/20 21:15 CSF Appearance (4) CLEAR 06/17/20 21:15 CSF Mononuclear Cells 98 % 06/17/20 21:15 CSF Polymorphonuclear 2 % 06/17/20 21:15 CSF Glucose 44 mg/dL (40-70) 06/17/20 21:15 CSF Total Protein PEP 104.6 mg/dL (0.0-44.0) H 06/17/20 21:15 CSF Total Protein 142 mg/dL (12-60) H 06/17/20 21:15 CSF Prealbumin 1.6 % (2.2-7.1) L 06/17/20 21:15 CSF Albumin 60.4 % (56.8-76.4) 06/17/20 21:15 CSF Hikey-6-Lnmczkac 4.1 % (1.1-6.6) 06/17/20 21:15 CSF Wmkgg-2-Tppnxkzf 7.6 % (3.0-12.6) 06/17/20 21:15 CSF Beta Globulin 15.2 % (7.3-17.9) 06/17/20 21:15 CSF Gamma Globulin 11.1 % (3.0-13.0) 06/17/20 21:15 CSF PEP M-Ramirez 2.4 % (Not Observ) H 06/17/20 21:15 Time Trough Drawn 0958 06/19/20 09:53 Vancomycin Trough 14.8 ug/mL (5.0-20.0) 06/19/20 09:53 Urine Opiates Screen NEGATIVE 06/16/20 15:10 Urine Methadone Screen NEGATIVE 06/16/20 15:10 Ur Barbiturates Screen NEGATIVE 06/16/20 15:10 Carbamazepine 6.9 ug/mL (4.0-12.0) 06/16/20 14:42 Ur Phencyclidine Scrn NEGATIVE 06/16/20 15:10 Ur Amphetamines Screen NEGATIVE 06/16/20 15:10 U Benzodiazepines Scrn NEGATIVE 06/16/20 15:10 Urine Cocaine Screen NEGATIVE 06/16/20 15:10 U Marijuana (THC) Screen NEGATIVE 06/16/20 15:10 Serum Alcohol < 10 mg/dL (NONE DETECTED) 06/16/20 13:50 CMV IgG Ab Cancelled 06/17/20 21:43 CMV IgM Ab Cancelled 06/17/20 21:43 HSV I DNA PCR Negative (Negative) 06/17/20 22:16 HSV II DNA PCR Negative (Negative) 06/17/20 22:16 HIV 1&2 Antibody NEGATIVE (NEGATIVE) 06/17/20 21:43 VZV IgG Antibody 910 index (Immune >16) 06/18/20 05:42 Slides for Path Review Cancelled 06/16/20 18:10 Impressions: Chest X-Ray 06/16/20 12:55 IMPRESSION: NO ACUTE RADIOGRAPHIC FINDING IN THE CHEST. Head CT 06/16/20 12:59 IMPRESSION: No significant interval change. Postsurgical changes in the right cerebrum are stable. No acute intracranial hemorrhage, mass, or evidence of acute territorial infarct. EVIDENCE OF ACUTE STROKE: NO. Cervical Spine CT 06/16/20 13:15 IMPRESSION: Patient motion artifact limits evaluation of the C4/[address] evidence of acute osseous injury. If high clinical suspicion for C4/5 injury, recommend repeat evaluation. PICC Line Insertion 06/17/20 00:00 IMPRESSION: SUCCESSFUL PLACEMENT OF A 5 FR DUAL LUMEN 36 CM PICC IN THE RIGHT BASILIC VEIN. Head CT 06/19/20 00:00 IMPRESSION: Postsurgical changes on the right. Generalize atrophy and small- vessel ischemic changes. No acute intracranial event. No abnormal enhancement. EVIDENCE OF ACUTE STROKE: NO. PICC Line Insertion 06/19/20 00:00 IMPRESSION: SUCCESSFUL PLACEMENT OF A 5 FR DUAL LUMEN 41 CM PICC IN THE LEFT BASILIC VEIN. Stroke Is this a Stroke Patient?: No Acute Heart Failure Is this a Heart Failure Patient?: No
[2020-06-25 07:57] LABS: HSV SOURCE CSF
[2020-06-25 07:57] LABS: HSV SOURCE BLOOD
--- NOTE | 2020-07-07 18:32 | Operative Report ---
Bedside Procedure - History of Present Illness History of Present Illness: SEPTEMBER VICTOR HUGO is a 55 year old female Indication for Procedure: Meningitis Date: 06/17/20 Provider: HECTOR NEWMAN - Lumbar Puncture Lumbar puncture Consent obtained: Yes Lumbar puncture pre-procedure: Sterile PPE donned, Betadine prep applied Patient position: Lying Anesthetic type: 1% Lidocaine mL's of anesthetic: 5 Amount/type of drainage: Clear, 19 mls Number of attempts: 1 Complications: No
== END 2020-06-23 12:30 | disposition home health service (06) | DRG 97 ==
LOC: ER 11:42 → EH 18:44 → OBSVTOIN 18:44 → 3S 21:20 → 5 06-19 19:58 → 4S 06-21 11:12 → 4W 06-22 10:31
PROVIDERS: ADMIT Hospitalist; ATTEND Hospitalist
PROC: 009U3ZX Drainage of Spinal Canal, Percutaneous Approach, Diagnostic (ICD-10-PCS; 2020-06-16)
PROC: 009U3ZX Drainage of Spinal Canal, Percutaneous Approach, Diagnostic (ICD-10-PCS; principal; 2020-06-17)
PROC: 02HV33Z Insertion of Infusion Device into Superior Vena Cava, Percutaneous Approach (ICD-10-PCS; 2020-06-17)
PROC: B518ZZA Fluoroscopy of Superior Vena Cava, Guidance (ICD-10-PCS; 2020-06-17)
PROC: B548ZZA Ultrasonography of Superior Vena Cava, Guidance (ICD-10-PCS; 2020-06-17)
PROC: 02HV33Z Insertion of Infusion Device into Superior Vena Cava, Percutaneous Approach (ICD-10-PCS; 2020-06-19)
PROC: B548ZZA Ultrasonography of Superior Vena Cava, Guidance (ICD-10-PCS; 2020-06-19)
PROC: B518ZZA Fluoroscopy of Superior Vena Cava, Guidance (ICD-10-PCS; 2020-06-19)
PROC: 3E0234Z Introduction of Serum, Toxoid and Vaccine into Muscle, Percutaneous Approach (ICD-10-PCS; 2020-06-23)
DX: G04.90 Encephalitis and encephalomyelitis, unspecified (principal); G93.41 Metabolic encephalopathy; I69.354 Hemiplegia and hemiparesis following cerebral infarction affecting left non-dominant side; G25.5 Other chorea; I10 Essential (primary) hypertension; I87.2 Venous insufficiency (chronic) (peripheral); Z88.2 Allergy status to sulfonamides; R06.83 Snoring; Z85.841 Personal history of malignant neoplasm of brain; Z79.899 Other long term (current) drug therapy; Z79.82 Long term (current) use of aspirin; Z23 Encounter for immunization
CPT/HCPCS: 36415; 36573; 70450; 70470; 71045; 72125; 80048; 80053; 80156; 80202; 80307; 81001; 82140; 82550; 82565; 82728; 82803; 82945; 82962; 83605; 83615; 83735; 83916; 84157; 84166; 84439; 84443; 85025; 85027; 85379; 85610; 85652; 85730; 86140; 86644; 86701; 86787; 87015; 87040; 87070; 87077; 87116; 87150; 87186; 87205; 87206; 87252; 87498; 87529; 87798; 89050; 90471; 90686; 93005; 93010; 94640; 95819; 96361; 96365; 96366; 96367; 96375; 96376; 99285; C9113; G0008; J0131; J0133; J0290; J0692; J0696; J1100; J1200; J1630; J1642; J1650; J1885; J1953; J2060; J2185; J2405; J2765; J2997; J3010; J3370; J3486; J3490; J7030; J7050; J7060